=== PATIENT | female | born 1950 | race Caucasian/White ===

== ENCOUNTER → 2016-11-09 | Day surgery (SDC) | payer SELFPAY ==
[~2016-11-09] MED LIST: BSS OPTH.SOL* BTL ONE; Bacitracin OINTMENT* 0.5% 0.5 oz TUBE ONE; Buffered Lidocaine 1% SYR 3ML* 3 ML/SYR SYRINGE INTRADERM ONE; Buffered Lidocaine 1% SYR 3ML* 3 ML/SYR SYRINGE ONE; Dexamethasone IV* 4 MG/ML 1 ML (4 MG) ONE; DiMENhydriNATE IV* 50 MG/ML VIAL IV PUSH PRN; HYDROcodone/ACETAMIN 5-325 MG* 1 TAB PO PRN; HYDROmorphone INJ* 1 MG/ML CARPUJECT SYRINGE IV PRN; Lidocain 1% EPI 1:100,000 * 30 ML MDV ONE; Midazolam* 1 MG/ML 5 ML VIAL (5 MG) ONE; Ondansetron INJ* 2 MG/ML VIAL IV PRN; Ondansetron INJ* 2 MG/ML VIAL ONE; Petrolatum 5 GM* 5 GM PACKET ONE; Propofol* 10 MG/ML 20 ML BTL IV PUSH ONE; ceFAZolin 2 GM PREMIX (*) 2 GM/50 ML BAG IVPB ONE; fentaNYL* 50 MCG/ML 2 ML VIAL (100 MCG VIAL) IV PRN; fentaNYL* 50 MCG/ML 2 ML VIAL (100 MCG VIAL) ONE
[2016-11-09 11:51] VITALS: BP 120/60
== END | disposition home or self-care (01) ==
LOC: OREAST 07:50
PROVIDERS: ATTEND Plastic Surgery
DX: Z41.1 Encounter for cosmetic surgery (principal); Z87.891 Personal history of nicotine dependence; R73.01 Impaired fasting glucose; J98.4 Other disorders of lung; F41.1 Generalized anxiety disorder
CPT/HCPCS: A9270-GY; J0690; J1100; J2250; J2405; J2704; J3010

== ENCOUNTER 2020-02-18 09:52 | Inpatient (IN) | payer MEDICARE ==
--- NOTE | 2020-02-18 10:08 | ED ---
HPI Cardiac - HPI Summary HPI Summary: Patient is a 70 y/o F presenting to [facility] via EMS for SOB and v-tach. The patient was at Dr. Allison's office earlier this morning for a cardiac stress test. The patient developed SOB and went into v-tach during the test. EMS was called and patient brought into ED. Upon arrival the patient was asymptomatic. Patient denies fever, cough, chills and sick contacts. FMHx of cardiac disease. She is a former smoker and denies alcohol and substance usage. Home medications and allergies are reviewed. - History of Current Complaint Stated Complaint: SOB AFTER A STRESS TEST PER EMS Time Seen by Provider: 02/18/20 09:59 Hx Obtained From: Patient Onset/Duration: Resolved Timing: Intermittent Pain Scale Used: 0-10 Numeric Character: Dyspnea at Exertion Associated Signs and Symptoms: Positive: Shortness of Breath, Other: - vtach. Negative: Fever, Chills, Cough, Productive Cough, Nonproductive Cough - Allergy/Home Medications Allergies/Adverse Reactions: Allergies Allergy/AdvReac Type Severity Reaction Status Date / Time No Known Allergies Allergy Verified 02/18/20 13:59 Home Medications: Home Medications Acetaminophen [Acetaminophen Extra Stren] 2 tab PO TID PRN 11/06/15 [History Confirmed 02/18/20] Ibuprofen TAB* [Motrin TAB* 800 MG] 1 tab PO TID PRN 11/06/15 [History Confirmed 02/18/20] Calcium Carbonate-Vitamin D [Calcium 600 + D] 1 tab PO DAILY 11/02/16 [History Confirmed 02/18/20] Magnesium Oxide [Magnesium] 250 mg PO DAILY 02/18/20 [History Confirmed 02/18/20 ] Turmeric 400 mg PO DAILY 02/18/20 [History Confirmed 02/18/20] clonazePAM TAB(*) [KlonoPIN TAB(*)] 1 mg PO BID PRN 02/18/20 [History Confirmed 02/18/20] PMH/Surg Hx/FS Hx/Imm Hx Endocrine/Hematology History: Reports: Hx Diabetes - PRE-NO MEDS Denies: Hx Thyroid Disease Cardiovascular History: Denies: Hx Hypertension, Hx Pacemaker/ICD Respiratory History: Reports: Other Respiratory Problems/Disorders - BILATERAL LUNG NODULES/STABLE Denies: Hx Asthma, Hx Chronic Obstructive Pulmonary Disease (COPD) GI History: Denies: Hx Ulcer History: Denies: Hx Renal Disease Sensory History: Denies: Hx Contacts or Glasses - GLASSES, Hx Hearing Aid Opthamlomology History: Denies: Hx Contacts or Glasses - GLASSES Neurological History: Reports: Hx Migraine Psychiatric History: Reports: Hx Anxiety, Hx Panic Disorder - HIGH ANXIETY - Cancer History Cancer Type, Location and Year: HX OF MULTIPLE NODULES ON LUNGS: NO CLEAR DIAGNOSIS OR CAUSE. FORMER SMOKER Hx Chemotherapy: No Hx Radiation Therapy: No - Surgical History Surgery Procedure, Year, and Place: COSMETIC FACIAL SURGERY. TONSILS Hx Anesthesia Reactions: No Infectious Disease History: Denies: Hx Clostridium Difficile, Hx Hepatitis, Hx Human Immunodeficiency Virus (HIV), Hx of Known/Suspected MRSA, Hx Shingles, Hx Tuberculosis, Hx Known/ Suspected VRE, Hx Known/Suspected VRSA, History Other Infectious Disease - Family History Known Family History: Positive: Cardiac Disease, Hypertension - Social History Alcohol Use: None Substance Use Type: Reports: None Smoking Status (MU): Former Smoker Type: Cigarettes Amount Used/How Often: QUIT AT AGE 49 Length of Time of Smoking/Using Tobacco: 20 YRS Have You Smoked in the Last Year: No Review of Systems Negative: Fever, Chills Positive: Other - vtach, since resolved Positive: Shortness Of Breath - resolved . Negative: Cough All Other Systems Reviewed And Are Negative: Yes Physical Exam - Summary Physical Exam Summary: Constitutional: Well-developed, Well-nourished, Alert. (-) Distressed Skin: Warm, Dry HENT: Normocephalic; Atraumatic Eyes: Conjunctiva normal Neck: Musculoskeletal ROM normal neck. (-) JVD, (-) Stridor, (-) Tracheal deviation Cardio: Rhythm regular, rate normal, Heart sounds normal; Intact distal pulses; Radial pulses are 2+ and symmetric. (-) Murmur Pulmonary/Chest wall: Effort normal. (-) Respiratory distress, (-) Wheezes, (-) Rales Abd: Soft, (-) tenderness, (-) Distension, (-) Guarding, (-) Rebound Musculoskeletal: (-) Edema Lymph: (-) Cervical adenopathy Neuro: Alert, Oriented x3 Psych: Mood and affect Normal Triage Information Reviewed: Yes Vital Signs Reviewed: Yes Procedures - Sedation Patient Received Moderate/Deep Sedation with Procedure: No Diagnostics - Laboratory Result Diagrams: 02/18/20 10:36 02/18/20 10:36 Lab Statement: Any lab studies that have been ordered have been reviewed, and results considered in the medical decision making process. - EKG 1020 Cardiac Rate: NL - rate of 89 BPM EKG Rhythm: Sinus Rhythm Summary of EKG Findings: EKG showed NSR with rate of 89 BPM, ST flattening in lead III. No STEMI. ED physician has reviewed and interpreted this EKG. Disposition - Course Course Of Treatment: Patient is here after going into V. tach and become short of breath during her stress test. Patient was asymptomatic on arrival. Patient had blood or performed which was grossly unremarkable. Cardiology saw the patient and recommended catheterization. Patient was admitted by medicine - Diagnoses Provider Diagnoses: V-tach, Abnormal stress test, SOB (shortness of breath) - Physician Notifications Discussed Care Of Patient With: Jessi Bishop Time Discussed With Above Provider: 09:57 Instructed by Provider To: Other - Dr. Bishop in ED, states that the patient will be evaluated and considered for laboratory tester. 1040 - Patient's case was discussed with Dr. Jama, Dr. Jama accepts for admission - Critical Care Time Critical Care Statement: Critical care time is provided exclusive of any time spent performing procedures. Discharge ED - Sign-Out/Discharge Documenting (check all that apply): Patient Departure - admit - Discharge Plan Condition: Stable Disposition: ADMITTED TO [facility] - Billing Disposition and Condition Condition: STABLE Disposition: Admitted to [facility] - Attestation Statements Document Initiated by Scribe: Yes Documenting Scribe: ZIGGY BAXTER Provider For Whom Scribe is Documenting (Include Credential): KLEVER DUMONT MD Scribe Attestation: ZIGGY Bellamy, scribed for KLEVER DUMONT MD on 02/18/20 at 1609. Scribe Documentation Reviewed: Yes Provider Attestation: The documentation as recorded by the ZIGGY walker accurately reflects the service I personally performed and the decisions made by , KLEVER DUMONT MD Status of Scribe Document: Viewed
[2020-02-18] MEDS ORDERED: Metoprolol Tartrate TAB* 25 MG PO ONE (10:21)
[2020-02-18] MEDS ORDERED: Atorvastatin* 80 MG TAB PO ONE (10:22)
[2020-02-18] MEDS ORDERED: NS 0.9% 1000 ML** 1,000 ML IV ONE (10:25)
[2020-02-18 10:48] LABS: ABS Eosinophils 0.1 10^3/ul (0-0.6); ABS Lymphocytes 1.5 10^3/ul (1.0-4.8); ABS Monocytes 0.5 10^3/ul (0-0.8); ABS Neutrophils 3.2 10^3/ul (1.5-7.7); Hematocrit 41 % (35-47); Hemoglobin 13.8 g/dL (12.0-16.0); Mean Corpuscular HGB Conc 34 g/dL (31-36); Mean Corpuscular Hemoglobin 31 pg (27-31); Mean Corpuscular Volume 90 fL (80-97); Mean Platelet Volume 7.5 fL (7.4-10.4); Platelet Count 234 10^3/uL (150-450); Red Blood Count 4.51 10^6 /uL (3.70-4.87); Red Cell Distribution Width 14 % (10-15); White Blood Count 5.4 10^3/uL (3.5-10.8)
--- OUTSIDE RECORDS SUMMARY | 2020-02-18 10:59 | XMS REPORT | Continuity of Care Document ---
:1950 External Reference #:[id number] Author Name Nurse Visit cc (transmitted by agent of provider Sam Coleman) Address [address] [facility] [address] [place] [address] Problems Active Problems Provider Date Impaired fasting glycemia Jade Watts M.D. Onset: 03/15/2011 Multiple nodules of lung Jasiel Collins M.D. Onset: 07/13/2014 Localized, primary osteoarthritis Renee Baker M.D. Onset: 05/28/2019 Social History Type Date Description Comments Sex Unknown Tobacco Use Start: Unknown End: Former Cigarette Smoker started in her 20s, Unknown smoked 3-4/day, in her 30s went up to 10 daily, quit 2001 ETOH Use Denies alcohol use Recreational Drug Use Denies Drug Use Tobacco Use Start: Unknown End: Patient is a former Quit Age around age Unknown smoker 50 Smoking Status Reviewed: 01/19/20 Patient is a former Quit Age around age smoker 50 Exercise Type/Frequency Exercises sporadically Allergies, Adverse Reactions, Alerts Active Allergies Reaction Severity Comments Date Epinephrine INTOLERANCE, HEART RACE Moderate 12/20/2009 Adhesives RASH Moderate 12/20/2009 Medications Active Medications SIG Qnty Indications Ordering Date Provider Cheratussin ac 5 - 10 milliliters 118ml J98.4 Nimo Bob, 09/25/2019 every 6 hours as N.P. 100-10mg/5ML needed cough Solution Flovent HFA 1 puff twice daily 21.2gm J47.9 Brenda Tavares, 08/25/2019 44mcg/Act Aerosol Vortex Valved use as instructed 1units J47.9 Lyric 06/16/2019 Holding Chamber MARIETTA Mayers Device Clonazepam Take 1/2 To 1 60tabs Nimo Bob, 06/12/2019 1mg Tablet By Mouth N.P. Tablets Two Times Daily - Maximum Daily Dose Of 2 Tablets Per Day Flutter use as instructed 1units J47.9 Brenda Tavares, 05/15/2019 Device twice a day Knee Brace left knee right 1units S83.511D Russ F 02/14/2018 [facility] knee acl MD Loraine deficiency brace Freestyle Lite Test test twice daily 100units Nimo Paulino, 02/07/2018 or as needed N.P. Strips Magnesium 1 by mouth every 90tabs Nimo Varn, 08/23/2017 200mg day N.P. Tablets Proair HFA 2 puffs four times 1units J98.4 Nimo Varn, 09/20/2015 a day as needed N.P. 108(90Base) mcg/Act dyspnea Aerosol Zovirax 1 tablet 5 times a 75caps Nimo Paulino, 10/10/2011 200mg day for 5 days as N.P. Capsules needed Propranolol HCL 1 by mouth once 30tabs Nimo Bob, 06/06/2010 daily as needed N.P. 10mg Tablets for anxiety Calcium 600 + D 1 po bid 60tabs Unknown [id number] Tablets History Medications Tamiflu 1 by mouth daily 10caps Nimo Bob, 2020 - 75mg Capsules for 10 days N.P. 01/18/2020 Tamiflu 1 by mouth daily 10caps Nimo Bob, 12/08/2019 - 75mg Capsules for 10 days N.P. 12/18/2019 Doxycycline Hyclate one tablet twice 14caps Brenda Tavares MD 2018 - 100mg daily for 7 08/28/2019 Capsules days. Medications Administered in Office Medication SIG Qnty Indications Ordering Provider Date PPD Injection Nurse Visit A 08/03/2017 Immunizations CPT Code Status Date Vaccine Reaction Lot # [id number] Given 09/25/2019 Tetanus And Diptheria (Td) No immediate reaction [id number] For Adult Use Preservative Free [id number] Given 07/17/2018 Pneumonia Vaccine No immediate [id number] reaction.. 09778 Given 07/17/2018 Influenza Virus Vaccine, No immediate [id number] Quadrivalent, Split, reaction... Preservative Free [id number] Given 08/01/2016 Flu Vaccine NOS 42379 Given 08/11/2015 Flu Vaccine Split Virus Preservative Free For Indiv 3Yr Older 38107 Given 06/02/2015 Pneumococcal Conjugate [id number] Vaccine 13 Valent For Intramuscular Use 73924 Given 08/12/2014 Flu Vaccine Split Virus Preservative Free For Indiv 3Yr Older 84291 Given 08/12/2014 Flu Vaccine Split Virus [id number] Preservative Free For Indiv 3Yr Older 52271 Given 08/05/2013 Flu Vaccine Split Virus [id number] Preservative Free For Indiv 3Yr Older 25943 Given 12/05/2012 Zoster (Zostavax) [id number] 11836 Given 04/09/2012 Pneumonia Vaccine [id number] 50562 Given 12/16/2008 Tdap - Tetanus/Diptheria/Acellular Pertussis 40956 Given Unknown Pneumonia Vaccine Vital Signs Date Vital Result Comment 01/19/2020 9:26am Height 64.5 inches 5'4.50" Weight 134.50 lb without shoes Heart Rate 98 /min Radial,regular BP Systolic Sitting 156 mmHg LA, reg cuff BP Diastolic Sitting 80 mmHg LA, reg cuff BP Systolic Standing 152 mmHg Ra sitting,reg cuff BP Diastolic Standing 86 mmHg Ra sitting,reg cuff BP Systolic Lying Down 148 mmHg Ra standing,reg cuff BP Diastolic Lying Down 78 mmHg Ra standing,reg cuff BP Systolic Recheck 137 mmHg la repeat sitting BP Diastolic Recheck 82 mmHg la repeat sitting BMI (Body Mass Index) 22.7 kg/m2 01/08/2020 10:17am Height 64.5 inches 5'4.50" Weight 134.00 lb Heart Rate 95 /min BP Systolic Sitting 130 mmHg BP Diastolic Sitting 90 mmHg O2 % BldC Oximetry 98 % BMI (Body Mass Index) 22.6 kg/m2 Results Test Acquired Date Facility Test Result H/L Range Note CBC Auto 01/05/2020 [facility] White Blood 5.9 10^3/uL Normal 3.5-10.[address] [place] [address] [phone] Red Blood Count 4.41 10^6/uL Normal 3.70-4.87 Hemoglobin 13.5 g/dL Normal 12.0-16.0 Hematocrit 40 % Normal 35-47 Mean Corpuscular Volume 91 fL Normal 80-97 Mean Corpuscular Hemoglobin 31 pg Normal 27-31 Mean Corpuscular HGB Conc 34 g/dL Normal 31-36 Red Cell Distribution Width 14 % Normal 10-15 Platelet Count 273 10^3/uL Normal 150-450 Mean Platelet Volume 8.1 fL Normal 7.4-10.4 Abs Neutrophils 2.9 10^3/uL Normal 1.5-7.7 Abs Lymphocytes 2.1 10^3/uL Normal 1.0-4.8 Abs Monocytes 0.7 10^3/uL Normal 0-0.8 Abs Eosinophils 0.1 10^3/uL Normal 0-0.6 Abs Basophils 0.0 10^3/uL Normal 0-0.2 Abs Nucleated RBC 0.0 10^3/uL Granulocyte % 50.0 % Lymphocyte % 35.2 % Monocyte % 12.3 % Eosinophil % 1.8 % Basophil % 0.7 % Nucleated Red Blood Cells % 0.1 Laboratory 01/05/2020 [facility] TSH (Thyroid 3.18 Normal 0.34 -5.[address] Stim Horm) mcIU/[place] [address] [phone] Magnesium 2.2 mg/dL Normal 1.9-2.7 Basic Metabolic 01/05/2020 [facility] Sodium 140 mmol/L Normal 135-[address] [place] [address] [phone] Potassium 4.3 mmol/L Normal 3.5-5.0 Chloride 105 mmol/L Normal 101-111 Co2 Carbon Dioxide 26 mmol/L Normal 22-32 Anion Gap 9 mmol/L Normal 2-11 Glucose 98 mg/dL Normal 70-100 Blood Urea Nitrogen 17 mg/dL Normal 6-24 Creatinine 0.81 mg/dL Normal 0.51-0.95 BUN/Creatinine Ratio 21.0 High 8-20 Calcium 10.1 mg/dL Normal 8.6-10.3 Egfr Non- 70.1 >60 Egfr 84.8 >60 1 Laboratory test 09/23/2019 [facility] Hemoglobin A1c 6.2 % High 4.0-5.[address] (Glyco HGB) [place] [address] [phone] Comp Metabolic 09/23/2019 [facility] Sodium 140 Normal 135- [address] mmol/[place] [address] [phone] Potassium 4.9 mmol/L Normal 3.5-5.0 Chloride 104 mmol/L Normal 101-111 Co2 Carbon Dioxide 29 mmol/L Normal 22-32 Anion Gap 7 mmol/L Normal 2-11 Glucose 100 mg/dL Normal 70-100 Blood Urea Nitrogen 19 mg/dL Normal 6-24 Creatinine 0.83 mg/dL Normal 0.51-0.95 BUN/Creatinine Ratio 22.9 High 8-20 Calcium 10.1 mg/dL Normal 8.6-10.3 Total Protein 7.1 g/dL Normal 6.4-8.9 Albumin 4.5 g/dL Normal 3.2-5.2 Globulin 2.6 g/dL Normal 2-4 Albumin/Globulin Ratio 1.7 Normal 1-3 Total Bilirubin 0.40 mg/dL Normal 0.2-1.0 Alkaline Phosphatase 89 U/L Normal 34-104 Alt 21 U/L Normal 7-52 Ast 16 U/L Normal 13-39 Egfr Non- 68.2 >60 Egfr 82.5 >60 3 Lipid Profile 09/23/2019 [facility] Triglycerides 161 mg/dL 4 (Trig/Chol/HDL) [address] [place] [address] [phone] Cholesterol 205 mg/dL 5 HDL Cholesterol 52.5 mg/dL 6 LDL Cholesterol 120 mg/dL 7 Laboratory test 08/25/2019 [facility] Cyclic Citrullinated < 15.6 U [address] [place] [address] [phone] C Reactive Protein 1.07 mg/L Normal <8.01 1 Because ethnic data is not always readily available, this report includes an eGFR for both -Americans and non- Americans. The National Kidney Disease Education Program (NKDEP) does not endorse the use of the MDRD equation for patients that are not between the ages of 18 and 70, are , have extremes of body size, muscle mass, or nutritional status, or are non- or non-. According to the National Kidney Foundation, irrespective of diagnosis, the stage of the disease is based on the level of kidney function: Stage Description GFR(mL/min/1.73 m(2)) 1 Kidney damage with normal or decreased GFR 90 2 Kidney damage with mild decrease in GFR 60-89 3 Moderate decrease in GFR 30-59 4 Severe decrease in GFR 15-29 5 Kidney failure <15 (or dialysis) 2 Therapeutic target for the treatment of diabetes mellitus patients is <7% HBA1C, and in selective patients <6.0%. Please refer to [place] [employer] diabetic care guidelines for further information. 3 Because ethnic data is not always readily available, this report includes an eGFR for both -Americans and non- Americans. The National Kidney Disease Education Program (NKDEP) does not endorse the use of the MDRD equation for patients that are not between the ages of 18 and 70, are , have extremes of body size, muscle mass, or nutritional status, or are non- or non-. According to the National Kidney Foundation, irrespective of diagnosis, the stage of the disease is based on the level of kidney function: Stage Description GFR(mL/min/1.73 m(2)) 1 Kidney damage with normal or decreased GFR 90 2 Kidney damage with mild decrease in GFR 60-89 3 Moderate decrease in GFR 30-59 4 Severe decrease in GFR 15-29 5 Kidney failure <15 (or dialysis) 4 Desirable: <150 Borderline High: 150-199 High: 200-499 Very High: >500 5 Desirable: <200 Borderline High: 200-239 High: >239 6 Low: <40 Desirable: 40-60 High: >60 7 Desirable: <100 Near Optimal: 100-129 Borderline High: 130-159 High: 160-189 Very High: >189 8 REFERENCE VALUE <20.0 (Negative) Test Performed by: [facility] [address] [place] [address] Travel Accommodation Inspector: Bernardo Sorto M.D. Ph.D.; CLIA# [id number] Procedures Date Code Description Status 01/19/2020 12584 EKG Tracing & Interpretation Completed 01/05/2020 97623 EKG Tracing & Interpretation Completed 12/05/2019 [id number] Diabetic Retinal Eye Exam Completed 08/30/2018 [id number] Mammogram Completed 02/15/2018 [id number] Diabetic Retinal Eye Exam Completed 07/16/2017 [id number] Mammogram Completed 07/13/2016 [id number] Mammogram Completed 06/22/2015 [id number] Mammogram Completed 05/25/2014 [id number] Mammogram Completed 05/25/2014 [id number] Bone Mineral Density Test Completed 06/11/2013 [id number] Colonoscopy Completed 11/15/2011 [id number] Mammogram Completed 11/15/2011 [id number] Bone Mineral Density Test Completed 02/14/2010 [id number] Mammogram Completed 12/30/2008 [id number] Mammogram Completed 12/30/2008 [id number] Bone Mineral Density Test Completed 06/22/2005 [id number] Diabetic Foot Exam Completed 04/02/2003 [id number] Colonoscopy Completed Medical Devices Description No Information Available Encounters Type Date Location Provider Dx Diagnosis Office Visit 01/19/2020 [facility] Florentino Lazaro.9 Bronchiectasis , 9:40a Brianna Allison uncomplicated I49.3 Ventricular premature depolarization I34.0 Nonrheumatic mitral (valve) insufficiency R94.31 Abnormal electrocardiogram [ECG] [EKG] R03.0 Elevated blood-pressure reading, w/o diagnosis of htn R00.2 Palpitations Office Visit 01/08/2020 [facility] J47.9 Bronchiectasis, 10:30a [facility] [place] uncomplicated [facility] Office Visit 01/05/2020 [facility] Internal Nimo I49.3 Ventricular 11:20a Medicine - Glenis Varn, N.P. premature depolarization Office Visit 09/25/2019 [facility] Internal Nimo Z00.00 Encntr for general 9:00a Medicine - [facility] Varn, N.P. adult medical exam w/o abnormal findings Z12.31 Encntr screen mammogram for malignant neoplasm of breast E78.00 Pure hypercholesterolemia, unspecified R73.01 Impaired fasting glucose F41.1 Generalized anxiety disorder R05 Cough Z23 Encounter for immunization Office Visit 08/25/2019 [facility] J47.9 Bronchiectasis, 8:30a [facility] [place] uncomplicated [facility] Assessments Date Code Description Provider 01/19/2020 [place].9 Bronchiectasis, uncomplicated Florentino Allison M.D. 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 01/19/2020 I34.0 Nonrheumatic mitral (valve) insufficiency Florentino Allison M.D. 01/19/2020 R94.31 Abnormal electrocardiogram [ECG] [EKG] Florentino Allison M.D. 01/19/2020 R03.0 Elevated blood-pressure reading, without Florentino Allison M.D. diagnosis of hypertension 01/19/2020 R00.2 Palpitations Florentino Allison M.D. 01/08/2020 J47.9 Bronchiectasis, uncomplicated Brenda Tavares MD 01/05/2020 I49.3 Ventricular premature depolarization Nimo Bob, N.P. 01/05/2020 I49.3 Ventricular premature depolarization Shaunna Brooks MD 09/25/2019 Z00.00 Encounter for general adult medical Kathy Barron.Naz examination without abnormal findings 09/25/2019 Z12.31 Encounter for screening mammogram for Nimo Bob N.PDavid malignant neoplasm of breast 09/25/2019 E78.00 Pure hypercholesterolemia, unspecified Nimo Bob, N.P. 09/25/2019 R73.01 Impaired fasting glucose Nimo Bob, N.P. 09/25/2019 F41.1 Generalized anxiety disorder Nimo Bob N.P. 09/25/2019 R05 Cough Nimo Bob N.P. 09/25/2019 Z23 Encounter for immunization Nimo Bob N.P. 08/25/2019 J47.9 Bronchiectasis, uncomplicated Brenda Tavares MD Plan of Treatment Future Appointment(s):03/18/2020 11:00 am - Chantell Navarro N.P. at [facility]02/13/2020 8:30 am - Nurse Visit cc at [facility]02/16/2020 10 :00 am - [facility] Schedule at [facility]03/10/2020 10:00 am - [facility] Schedule at [facility]03/10/2020 10:30 am - Florentino Allison M.D. at [facility]01/13/2021 10:30 am - Lyric Mayers NP at [facility]10/13/2020 9:20 am - Nimo Bob N.P. at [facility] Internal Medicine - [facility]01/19/2020 - Florentino Allison M.D.J47.9 Bronchiectasis, zdflxumgnitcaZ71.3 Ventricular premature depolarizationRecommendations:reduce caffeine. increase regular moderate exercise to 30 min 4-5 times/weekI34.0 Nonrheumatic mitral (valve) insufficiencyNew Orders:Echocardiogram, Scheduled: 02/16/20R94.31 Abnormal electrocardiogram [ECG] [EKG]New Orders:Stress Test, Exercise Echocardiogram, Scheduled: 03/10/20Follow up:ov Chantell 2 m ov JFM 8 mR03.0 Elevated blood- pressure reading, without diagnosis of hypertensionRecommendations:bring home unit to next visit.R00.2 Palpitations Functional Status Description No Information Available Mental Status Description No Information Available Referrals Refer to Reason for Referral Status Appt Date Florentino Allison MD Patient with frequent PVCs referred for Sent 01/19/2020 evaluation and treatment. Thank you for seeing this very pleasant patient. [address] [place] [address] [phone]
--- OUTSIDE RECORDS SUMMARY | 2020-02-18 10:59 | XMS REPORT | Continuity of Care Document ---
:1950 External Reference #:[id number] Author Name Nurse Visit cc (transmitted by agent of provider Anat Trinidad) Address [address] [facility] [address] [place] [address] Problems Active Problems Provider Date Impaired fasting [...] knee right 1units S83.511D Russ F 02/14/2018 [facility] knee acl MD Loraine deficiency brace Freestyle Lite Test test twice daily 100units Nimo Paulino, 02/07/2018 or as needed N.P. Strips Magnesium 1 by mouth every 90tabs Nimo Varn, 08/23/2017 200mg day N.P. Tablets Proair HFA 2 puffs four times 1units J98.4 Nimo Varjoycelyn, 09/20/2015 a day as needed N.P. 108(90Base) mcg/Act dyspnea Aerosol Zovirax 1 tablet 5 times a 75caps Nimo Bob, 10/10/2011 200mg day for 5 days as N.P. Capsules needed Propranolol HCL 1 by mouth once 30tabs Nimo Bob, 06/06/2010 daily as needed N.P. 10mg Tablets for anxiety Calcium 600 + D 1 po bid 60tabs Unknown [id number] Tablets History Medications Tamiflu 1 by mouth [...] Code Status Date Vaccine Reaction Lot # [id number] Given 09/25/2019 Tetanus And Diptheria (Td) No immediate reaction [id number] For Adult Use Preservative Free 88123 Given 07/17/2018 Pneumonia Vaccine No immediate [id number] reaction.. 56492 Given 07/17/2018 Influenza Virus Vaccine, No immediate [id number] Quadrivalent, Split, reaction... Preservative Free Q2039 Given 08/01/2016 Flu Vaccine NOS 64023 Given 08/11/2015 Flu Vaccine Split Virus Preservative Free For Indiv 3Yr Older 71924 Given 06/02/2015 Pneumococcal Conjugate [id number] Vaccine 13 Valent For Intramuscular Use 59038 Given 08/12/2014 Flu Vaccine Split Virus Preservative Free For Indiv 3Yr Older 58618 Given 08/12/2014 Flu Vaccine Split Virus [id number] Preservative Free For Indiv 3Yr Older 50261 Given 08/05/2013 Flu Vaccine Split Virus [id number] Preservative Free For Indiv 3Yr Older 36590 Given 12/05/2012 Zoster (Zostavax) [id number] 07564 Given 04/09/2012 Pneumonia Vaccine [id number] 94534 Given 12/16/2008 Tdap - Tetanus/Diptheria/Acellular Pertussis 68024 Given Unknown Pneumonia Vaccine Vital Signs Date [...] Result H/L Range Note CBC Auto 01/05/2020 [facility] White Blood 5.9 10^3/uL Normal 3.5-10.[address] [place] [address] [phone] Red Blood Count 4.41 10^6/uL Normal 3.70-4.87 [...] Red Blood Cells % 0.1 Laboratory 01/05/2020 [facility] TSH (Thyroid 3.18 Normal 0.34 -5.[address] Stim Horm) mcIU/[place] [address] [phone] Magnesium 2.2 mg/dL Normal 1.9-2.7 Basic Metabolic 01/05/2020 [facility] Sodium 140 mmol/L Normal 135-[address] [place] [address] [phone] Potassium 4.3 mmol/L Normal 3.5-5.0 Chloride 105 mmol/L Normal 101-111 Co2 Carbon Dioxide 26 mmol/L Normal 22-32 Anion Gap 9 mmol/L Normal 2-11 Glucose 98 mg/dL Normal 70-100 Blood Urea Nitrogen 17 mg/dL Normal 6-24 Creatinine 0.81 mg/dL Normal 0.51-0.95 BUN/Creatinine Ratio 21.0 High 8-20 Calcium 10.1 mg/dL Normal 8.6-10.3 Egfr Non- 70.1 >60 Egfr 84.8 >60 1 Laboratory test 09/23/2019 [facility] Hemoglobin A1c 6.2 % High 4.0-5.[address] (Glyco HGB) [place] [address] [phone] Comp Metabolic 09/23/2019 [facility] Sodium 140 Normal 135- [address] mmol/[place] [address] [phone] Potassium 4.9 mmol/L Normal 3.5-5.0 Chloride 104 [...] Egfr 82.5 >60 3 Lipid Profile 09/23/2019 [facility] Triglycerides 161 mg/dL 4 (Trig/Chol/HDL) [address] [place] [address] [phone] Cholesterol 205 mg/dL 5 HDL Cholesterol 52.5 mg/dL 6 LDL Cholesterol 120 mg/dL 7 Laboratory test 08/25/2019 [facility] Cyclic Citrullinated < 15.6 U [address] [place] [address] [phone] C Reactive Protein 1.07 mg/L Normal <8.01 [...] in selective patients <6.0%. Please refer to [place] Diabetes [employer] diabetic care guidelines for further [...] REFERENCE VALUE <20.0 (Negative) Test Performed by: [facility] [address] [place] [address] Bilingual Account Manager: Bernardo Sorto M.D. Ph.D.; CLIA# [id number] Procedures Date Code Description Status 02/12/2020 61529 Holter Monitor Review (24 hr)dr review & interp only Completed 02/12/2020 40930 ECG Monitor/Recording W/Visual Superimposition Completed Scanning 01/19/2020 23660 EKG Tracing & Interpretation Completed 01/05/2020 19053 EKG Tracing & Interpretation Completed 12/05/2019 [id number] Diabetic Retinal Eye Exam Completed 08/30/2018 [id number] Mammogram Completed 02/15/2018 [id number] Diabetic Retinal Eye Exam Completed 07/16/2017 [id number] Mammogram Completed 07/13/2016 [id number] Mammogram Completed 06/22/2015 [id number] Mammogram Completed 05/25/2014 [id number] Mammogram Completed 05/25/2014 [id number] Bone Mineral Density Test Completed 06/11/2013 97957774 Colonoscopy Completed 11/15/2011 [id number] Mammogram Completed 11/15/2011 [id number] Bone Mineral Density Test Completed 02/14/2010 [id number] Mammogram Completed 12/30/2008 04546580 Mammogram Completed 12/30/2008 181004022 Bone Mineral Density Test Completed 06/22/2005 142556567 Diabetic Foot Exam Completed 04/02/2003 [id number] Colonoscopy Completed Medical Devices Description No Information Available Encounters Type Date Location Provider Dx Diagnosis Office Visit 01/19/2020 [facility] Florentino Spangler47.9 Bronchiectasis , 9:40a Brianna Allison uncomplicated I49.3 Ventricular premature depolarization I34.0 Nonrheumatic mitral (valve) insufficiency R94.31 Abnormal electrocardiogram [ECG] [EKG] R03.0 Elevated blood-pressure reading, w/o diagnosis of htn R00.2 Palpitations Office Visit 01/08/2020 [facility] J47.9 Bronchiectasis, 10:30a [facility] Anusha uncomplicated [facility] Office Visit 01/05/2020 [facility] Internal Nimo I49.3 Ventricular 11:20a Medicine - Glenis Bob, N.P. premature depolarization Office Visit 09/25/2019 [facility] Internal Nimo Z00.00 Encntr for general 9:00a Medicine - Glenis Bob, N.P. 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 01/19/2020 I49.3 [...] 09/25/2019 Z00.00 Encounter for general adult medical Nimo Bob N.Naz examination without abnormal findings 09/25/2019 Z12.31 Encounter for screening mammogram for Nimo Bob N.PDvaid malignant neoplasm of breast 09/25/2019 E78.00 Pure hypercholesterolemia, unspecified Nimo Bob, N.P. 09/25/2019 R73.01 Impaired fasting glucose Nimo Bob, N.P. 09/25/2019 F41.1 Generalized anxiety disorder Nimo Bob, N.P. 09/25/2019 R05 Cough Nimo Bob, N.P. 09/25/2019 Z23 Encounter for immunization Nimo Bob, N.P. 08/25/2019 J47.9 Bronchiectasis, uncomplicated Brenda Tavares MD Plan of Treatment Future Appointment(s):03/18/2020 11:00 am - Jessy [facility]iresP. at [facility]02/16/2020 10:00 am - [place] [facility] Schedule at [facility]2019 10:00 am - [place] [facility] Schedule at [facility]03/10/2020 10:30 am - Florentino Allison M.D. at [facility]01/13/2021 10:30 am - Lyric Mayers NP at [facility]10/13/2020 9:20 am - Nimo Bob N.P. at [facility] Internal Medicine - [facility]01/19/2020 - Florentino Allison M.D.J47.9 Bronchiectasis, jteewnwdndfmcR08.3 Ventricular premature depolarizationRecommendations:reduce caffeine. 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 Thank you for seeing this very pleasant patient. [address] [facility] 4TH [place] [address] [phone]
--- OUTSIDE RECORDS SUMMARY | 2020-02-18 10:59 | XMS REPORT | Continuity of Care Document ---
:1950 External Reference #:[id number] Author Name [place] [facility] (transmitted by agent of provider Tarik Conroy) Address [address] [facility] [address] [place] [address] Problems Active Problems Provider Date Impaired fasting [...] 1units S83.511D Russ F 02/14/2018 [facility] [place] acl MD Loraine deficiency brace Freestyle [...] Propranolol HCL 1 by mouth once 30tabs Nmio Bob, 06/06/2010 daily as needed N.P. 10mg Tablets for anxiety Calcium 600 + D 1 po bid 60tabs Unknown [id number] Tablets History Medications Tamiflu 1 by mouth [...] Code Status Date Vaccine Reaction Lot # 38874 Given 09/25/2019 Tetanus And Diptheria (Td) No immediate reaction [id number] For Adult Use Preservative Free 68766 Given 07/17/2018 Pneumonia Vaccine No immediate [id number] reaction.. 55058 Given 07/17/2018 Influenza Virus Vaccine, No immediate [id number] Quadrivalent, Split, reaction... Preservative Free Q2039 Given 08/01/2016 Flu Vaccine NOS 78353 Given 08/11/2015 Flu Vaccine Split Virus Preservative Free For Indiv 3Yr Older 87034 Given 06/02/2015 Pneumococcal Conjugate [id number] Vaccine 13 Valent For Intramuscular Use 19731 Given 08/12/2014 Flu Vaccine Split Virus Preservative Free For Indiv 3Yr Older 15039 Given 08/12/2014 Flu Vaccine Split Virus 192859 Preservative Free For Indiv 3Yr Older 81659 Given 08/05/2013 Flu Vaccine Split Virus [id number] Preservative Free For Indiv 3Yr Older 99203 Given 12/05/2012 Zoster (Zostavax) [id number] 53708 Given 04/09/2012 Pneumonia Vaccine 1947AA 76377 Given 12/16/2008 Tdap - Tetanus/Diptheria/Acellular Pertussis 47809 Given Unknown Pneumonia Vaccine Vital Signs Date [...] Result H/L Range Note CBC Auto 01/05/2020 [facility] White Blood 5.9 10^3/uL Normal 3.5-10.[address] [place] [address] [phone] Red Blood Count 4.41 10^6/uL Normal 3.70-4.87 [...] Red Blood Cells % 0.1 Laboratory 01/05/2020 [facility] TSH (Thyroid 3.18 Normal 0.34 -5.[address] Stim Horm) mcIU/[place] [address] [phone] Magnesium 2.2 mg/dL Normal 1.9-2.7 Basic Metabolic 01/05/2020 [facility] Sodium 140 mmol/L Normal 135-[address] [place] [address] [phone] Potassium 4.3 mmol/L Normal 3.5-5.0 Chloride 105 mmol/L Normal 101-111 Co2 Carbon Dioxide 26 mmol/L Normal 22-32 Anion Gap 9 mmol/L Normal 2-11 Glucose 98 mg/dL Normal 70-100 Blood Urea Nitrogen 17 mg/dL Normal 6-24 Creatinine 0.81 mg/dL Normal 0.51-0.95 BUN/Creatinine Ratio 21.0 High 8-20 Calcium 10.1 mg/dL Normal 8.6-10.3 Egfr Non- 70.1 >60 Egfr 84.8 >60 1 Laboratory test 09/23/2019 [facility] Hemoglobin A1c 6.2 % High 4.0-5.[address] (Glyco HGB) [place] [address] [phone] Comp Metabolic 09/23/2019 [facility] Sodium 140 Normal 135- [address] mmol/[place] [address] [phone] Potassium 4.9 mmol/L Normal 3.5-5.0 Chloride 104 [...] Egfr 82.5 >60 3 Lipid Profile 09/23/2019 [facility] Triglycerides 161 mg/dL 4 (Trig/Chol/HDL) [address] [place] [address] [phone] Cholesterol 205 mg/dL 5 HDL Cholesterol 52.5 mg/dL 6 LDL Cholesterol 120 mg/dL 7 Laboratory test 08/25/2019 [facility] Cyclic Citrullinated < 15.6 U [address] [place] [address] [phone] C Reactive Protein 1.07 mg/L Normal <8.01 [...] in selective patients <6.0%. Please refer to [place] Diabetes Association diabetic care guidelines for further [...] REFERENCE VALUE <20.0 (Negative) Test Performed by: [facility] [address] [place] [address] Communications Executive: Bernardo Sorto M.D. Ph.D.; CLIA# [id number] Procedures Date Code Description Status 02/16/2020 59495 ECHO Transthoracic, Real-Time 2D With Doppler And Completed Color Flow 02/12/2020 02783 Holter Monitor Review (24 hr)dr teague & genia only Completed 02/12/2020 04561 ECG Monitor/Recording W/Visual Superimposition Completed Scanning 01/19/2020 69670 EKG Tracing & Interpretation Completed 01/05/2020 07251 EKG Tracing & Interpretation Completed 12/05/2019 176103158 Diabetic Retinal Eye Exam Completed 08/30/2018 42011835 Mammogram Completed 02/15/2018 601850054 Diabetic Retinal Eye Exam Completed 07/16/2017 [id number] Mammogram Completed 07/13/2016 13820426 Mammogram Completed 06/22/2015 18373278 Mammogram Completed 05/25/2014 593067337 Bone Mineral Density Test Completed 05/25/2014 [id number] Mammogram Completed 06/11/2013 [id number] Colonoscopy Completed 11/15/2011 17279100 Mammogram Completed 11/15/2011 212068068 Bone Mineral Density Test Completed 02/14/2010 [id number] Mammogram Completed 12/30/2008 80786447 Mammogram Completed 12/30/2008 609079695 Bone Mineral Density Test Completed 06/22/2005 039857394 Diabetic Foot Exam Completed 04/02/2003 [id number] Colonoscopy Completed Medical Devices Description No Information Available Encounters Type Date Location Provider Dx Diagnosis Office Visit 01/19/2020 [facility] Florentino Spangler47.9 Bronchiectasis , 9:40a Brianna Allison uncomplicated I49.3 Ventricular premature depolarization I34.0 Nonrheumatic mitral (valve) insufficiency R94.31 Abnormal electrocardiogram [ECG] [EKG] R03.0 Elevated blood-pressure reading, w/o diagnosis of htn R00.2 Palpitations Office Visit 01/08/2020 [facility] J47.9 Bronchiectasis, 10:30a [facility] Anusha uncomplicated [facility] Office Visit 01/05/2020 [facility] Internal Nimo I49.3 Ventricular 11:20a Medicine - Glenis Bob, N.P. premature depolarization Office Visit 09/25/2019 [facility] Internal Nimo Z00.00 Encntr for general 9:00a Medicine - Glenis Bob, N.P. 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 09/25/2019 R73.01 Impaired fasting glucose Nimo Bob, N.P. 09/25/2019 F41.1 Generalized anxiety disorder Nimo Bob, N.P. 09/25/2019 R05 Cough Nimo Bob, N.P. 09/25/2019 Z23 Encounter for immunization Nimo Bob N.P. 08/25/2019 J47.9 Bronchiectasis, uncomplicated Brenda Tavares MD Plan of Treatment Future Appointment(s):03/18/2020 11:00 am - Chantell Navarro N.P. at [place] [facility]/11/2021 10:30 am - Lyric Mayers NP at [facility]/13/2020 9:20 am - Nimo Bob N.P. at [facility] Internal Medicine - [facility]01/19/2020 - Florentino Allison M.D.J47.9 Bronchiectasis, xmitmarxwbrxyJ07.3 Ventricular premature depolarizationRecommendations:reduce caffeine. 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 Thank you for seeing this very pleasant patient. [address] [facility] 4TH [place] [address] [phone]
--- OUTSIDE RECORDS SUMMARY | 2020-02-18 11:00 | XMS REPORT | Continuity of Care Document ---
:1950 External Reference #:[id number] Author Name Brenda Tavares MD (transmitted by agent of provider Doris Arango) Address [address], [address] [place] [address] Problems Active Problems Provider Date Impaired fasting glycaemia Jade Watts M.D. Onset: 03/15/2011 Multiple nodules [...] age Unknown smoker 50 Smoking Status Reviewed: 01/08/20 Patient is a former Quit Age around age smoker 50 Exercise Type/Frequency Exercises sporadically Allergies, Adverse Reactions, Alerts Active Allergies Reaction Severity Comments Date Epinephrine INTOLERANCE, HEART RACE Moderate 12/20/2009 Adhesives RASH Moderate 12/20/2009 Medications Active Medications SIG Qnty Indications Ordering Date Provider Varun ac 5 - 10 milliliters 118ml J98.4 Nimo Bob, 09/25/2019 every 6 hours as N.P. 100-10mg/5ML needed cough Solution Flovent HFA 1 puff twice daily 21.2gm J47.9 Brenda Tavares, 08/25/2019 44mcg/Act Aerosol Ambien 1 tab before 1tabs Lyric 06/27/2019 5mg Tablets bedtime MARIETTA Mayers Vortex Valved use as instructed 1units J47.9 Lyric 06/16/2019 Holding Chamber MARIETTA Mayers Device Clonazepam take 1/2 to 1 60tabs Nimo Farahjoycelyn, 06/12/2019 1mg tablet by mouth N.P. Tablets two times daily - maximum daily dose of 2 per day Flutter use as instructed 1units J47.9 Brenda Tavares, 05/15/2019 Device twice a day Knee Brace left knee right 1units S83.511D Russ F 02/14/2018 [facility] knee acl MD Loraine deficiency brace Freestyle Lite Test test twice daily 100units Nimo Varjoycelyn, 02/07/2018 or as needed N.P. Strips Magnesium [...] HCL 1 by mouth once 30tabs Nimo Paulino, 06/06/2010 daily as needed N.P. 10mg Tablets for anxiety Calcium 600 + D 1 po bid 60tabs Unknown [id number] Tablets History Medications Tamiflu 1 by mouth daily 10caps Nimo Paulino, 12/08/2019 - 75mg Capsules for 10 days N.P. 12/18/2019 Doxycycline Hyclate one tablet twice 14caps Brenda Tavares MD 2018 - 100mg daily for 7 08/28/2019 Capsules days. Medications Administered in Office Medication SIG Qnty Indications Ordering Provider Date PPD Injection Nurse Visit A 08/03/2017 Immunizations CPT Code Status Date Vaccine Reaction Lot # [id number] Given 09/25/2019 Tetanus And Diptheria (Td) No immediate reaction [id number] For Adult Use Preservative Free [id number] Given 07/17/2018 Pneumonia Vaccine No immediate [id number] reaction.. [id number] Given 07/17/2018 Influenza Virus Vaccine, No immediate [id number] Quadrivalent, Split, reaction... Preservative Free [id number] Given 08/01/2016 Flu Vaccine NOS 56913 Given 08/11/2015 Flu Vaccine Split Virus Preservative Free For Indiv 3Yr Older 62500 Given 06/02/2015 Pneumococcal Conjugate [id number] Vaccine 13 Valent For Intramuscular Use 92570 Given 08/12/2014 Flu Vaccine Split Virus Preservative Free For Indiv 3Yr Older 37791 Given 08/12/2014 Flu Vaccine Split Virus [id number] Preservative Free For Indiv 3Yr Older 72784 Given 08/05/2013 Flu Vaccine Split Virus [id number] Preservative Free For Indiv 3Yr Older 70463 Given 12/05/2012 Zoster (Zostavax) [id number] 96927 Given 04/09/2012 Pneumonia Vaccine [id number] 32462 Given 12/16/2008 Tdap - Tetanus/Diptheria/Acellular Pertussis 86435 Given Unknown Pneumonia Vaccine Vital Signs Date Vital Result Comment 01/08/2020 10:17am Height 64.5 inches 5'4.50" Weight 134.00 lb Heart Rate 95 /min BP Systolic Sitting 130 mmHg BP Diastolic Sitting 90 mmHg O2 % BldC Oximetry 98 % BMI (Body Mass Index) 22.6 kg/m2 01/05/2020 11:31am Height 64.5 inches 5'4.50" Weight 132.38 lb Heart Rate 96 /min BP Systolic Sitting 135 mmHg BP Diastolic Sitting 72 mmHg Body Temperature 97.8 F O2 % BldC Oximetry 97 % BMI (Body Mass Index) 22.4 kg/m2 Results Test Acquired Date Facility Test Result H/L Range Note Basic Metabolic 01/05/2020 [facility] Sodium 140 mmol/L Normal 135-145 Panel [address] [place] [address] [phone] Potassium 4.3 mmol/L Normal 3.5-5.0 Chloride 105 mmol/L Normal 101-111 Co2 Carbon Dioxide 26 mmol/L Normal 22-32 Anion Gap 9 mmol/L Normal 2-11 Glucose 98 mg/dL Normal 70-100 Blood Urea Nitrogen 17 mg/dL Normal 6-24 Creatinine 0.81 mg/dL Normal 0.51-0.95 BUN/Creatinine Ratio 21.0 High 8-20 Calcium 10.1 mg/dL Normal 8.6-10.3 Egfr Non- 70.1 >60 Egfr 84.8 >60 1 Laboratory 01/05/2020 [facility] TSH (Thyroid 3.18 Normal 0.34 -5.60 test finding [address] Stim Horm) mcIU/[place] [address] [phone] Magnesium 2.2 mg/dL Normal 1.9-2.7 CBC Auto 01/05/2020 [facility] White Blood 5.9 10^3/uL Normal 3.5-10.[address] [place] [address] [phone] Red Blood Count 4.41 10^6/uL Normal 3.70-4.87 [...] Nucleated Red Blood Cells % 0.1 Laboratory test 09/23/2019 [facility] Hemoglobin A1c 6.2 % High 4.0-5.[address] (Glyco HGB) [place] [address] [phone] Comp Metabolic 09/23/2019 [facility] Sodium 140 Normal 135- [address] mmol/[place] [address] [phone] Potassium 4.9 mmol/L Normal 3.5-5.0 Chloride 104 [...] Egfr 82.5 >60 3 Lipid Profile 09/23/2019 [facility] Triglycerides 161 mg/dL 4 (Trig/Chol/HDL) [address] [place] [address] [phone] Cholesterol 205 mg/dL 5 HDL Cholesterol 52.5 mg/dL 6 LDL Cholesterol 120 mg/dL 7 Laboratory test 08/25/2019 [facility] Cyclic Citrullinated < 15.6 U [address] [place] [address] [phone] C Reactive Protein 1.07 mg/L Normal <8.01 Laboratory test 07/17/2019 [facility] C Reactive 1.81 mg/L Normal <8.[address] [place] [address] [phone] Erythrocyte Sed Rate 17 mm/Hr Normal 0-29 CBC Auto 07/17/2019 [facility] White Blood 5.4 10^3/uL Normal 3.5-10.[address] [place] [address] [phone] Red Blood Count 4.54 10^6/uL Normal 3.70-4.87 Hemoglobin 13.9 g/dL Normal 12.0-16.0 Hematocrit 41 % Normal 35-47 Mean Corpuscular Volume 91 fL Normal 80-97 Mean Corpuscular Hemoglobin 31 pg Normal 27-31 Mean Corpuscular HGB Conc 34 g/dL Normal 31-36 Red Cell Distribution Width 14 % Normal 10-15 Platelet Count 288 10^3/uL Normal 150-450 Mean Platelet Volume 7.8 fL Normal 7.4-10.4 Abs Neutrophils 2.8 10^3/uL Normal 1.5-7.7 Abs Lymphocytes 1.9 10^3/uL Normal 1.0-4.8 Abs Monocytes 0.5 10^3/uL Normal 0-0.8 Abs Eosinophils 0.1 10^3/uL Normal 0-0.6 Abs Basophils 0.0 10^3/uL Normal 0-0.2 Abs Nucleated RBC 0.0 10^3/uL Granulocyte % 52.6 % Lymphocyte % 35.5 % Monocyte % 9.5 % Eosinophil % 1.5 % Basophil % 0.9 % Nucleated Red Blood Cells % 0.1 Comp Metabolic 07/17/2019 [facility] Sodium 137 mmol/L Normal 135-145 Panel [address] [place] [address] [phone] Potassium 4.2 mmol/L Normal 3.5-5.0 Chloride 102 mmol/L Normal 101-111 Co2 Carbon Dioxide 29 mmol/L Normal 22-32 Anion Gap 6 mmol/L Normal 2-11 Glucose 93 mg/dL Normal 70-100 Blood Urea Nitrogen 18 mg/dL Normal 6-24 Creatinine 0.84 mg/dL Normal 0.51-0.95 BUN/Creatinine Ratio 21.4 High 8-20 Calcium 9.7 mg/dL Normal 8.6-10.3 Total Protein 7.2 g/dL Normal 6.4-8.9 Albumin 4.9 g/dL Normal 3.2-5.2 Globulin 2.3 g/dL Normal 2-4 Albumin/Globulin Ratio 2.1 Normal 1-3 Total Bilirubin 0.40 mg/dL Normal 0.2-1.0 Alkaline Phosphatase 66 U/L Normal 34-104 Alt 13 U/L Normal 7-52 Ast 14 U/L Normal 13-39 Egfr Non- 67.2 >60 Egfr 81.3 >60 9 Payton Igg AB Reflex 07/17/2019 [facility] SS-A/Ro Antibody <0.2 U [address] [place] [address] [phone] SS-B/La Antibody <0.2 U 11 Sm (Salter) IgG Antibody <0.2 U 12 SINGLE NEEDLE OPERATOR Antibody, IgG <0.2 U 13 Scl-70 (Scleroderma) Antibody 0.2 U 14 Annalise-1 Antibody <0.2 U 15 Laboratory test 07/17/2019 [facility] Cyclic Citrullinated < 15.6 U [address] [place] [address] [phone] Anti Double Stranded Dna AB <12.3 IU/mL 17 Scleroderma AB (SCL70) 07/17/2019 [facility] Scleroderma Ab 0.2 U [address] [place] [address] [phone] Urinalysis Profile 07/17/2019 [facility] Urine Color Straw [address] [place] [address] [phone] Urine Appearance Clear Urine Specific [place] 1.005 Low 1.010-1.030 Urine pH 7.0 Normal 5-9 Urine Urobilinogen Negative Negative Urine Ketones Negative Negative Urine Protein Negative Negative Urine Leukocytes Negative Negative Urine Blood Negative Negative Urine Nitrite Negative Negative Urine Bilirubin Negative Negative Urine Glucose Negative Negative 1 Because ethnic data is not always [...] in selective patients <6.0%. Please refer to [place] [employer] Association diabetic care guidelines for further [...] REFERENCE VALUE <20.0 (Negative) Test Performed by: [place] [address] Superintendent Factory: Bernardo Sorto M.D. Ph.D.; CLIA# [id number] 9 Because ethnic data is not always readily [...] 15-29 5 Kidney failure <15 (or dialysis) 10 REFERENCE VALUE <1.0 (Negative) 11 REFERENCE VALUE <1.0 (Negative) 12 REFERENCE VALUE <1.0 (Negative) 13 REFERENCE VALUE <1.0 (Negative) 14 REFERENCE VALUE <1.0 (Negative) 15 REFERENCE VALUE <1.0 (Negative) Test Performed by: [facility] [address] [place] [address] Superintendent Factory: Bernardo Sorto M.D. Ph.D.; DIANA# [id number] 16 REFERENCE VALUE <20.0 (Negative) Test Performed by: [facility] [employer] [facility] [address] [place] [address] Superintendent Factory: Bernardo Sorto M.D. Ph.D.; QUENTINIA# [id number] 17 REFERENCE VALUE <30.0 (Negative) Test Performed by: [facility] [place] [address] [place] [id number] Superintendent Factory: Bernardo Sorto M.D. Ph.D.; CLIA# [id number] 18 REFERENCE VALUE <1.0 (Negative) Test Performed by: [place] [address] Superintendent Factory: Bernardo Sorto M.D. Ph.D.; CLIA# [id number] Procedures Date Code Description Status 01/05/2020 82547 EKG Tracing & Interpretation Completed 12/05/2019 [id number] Diabetic Retinal Eye Exam Completed 08/06/2019 16528 Polysomnography Sleep Staging 4+ Parameters Completed 08/30/2018 [id number] Mammogram Completed 02/15/2018 [id number] Diabetic Retinal Eye Exam Completed 07/16/2017 [id number] Mammogram Completed 07/13/2016 [id number] Mammogram Completed 06/22/2015 [id number] Mammogram Completed 05/25/2014 [id number] Mammogram Completed 05/25/2014 [id number] Bone Mineral Density Test Completed 06/11/2013 [id number] Colonoscopy Completed 11/15/2011 [id number] Mammogram Completed 11/15/2011 [id number] Bone Mineral Density Test Completed 02/14/2010 [id number] Mammogram Completed 12/30/2008 [id number] Mammogram Completed 12/30/2008 [id number] Bone Mineral Density Test Completed 06/22/2005 [id number] Diabetic Foot Exam Completed 04/02/2003 [id number] Colonoscopy Completed Medical Devices Description No Information Available Encounters Type Date Location Provider Dx Diagnosis Office Visit 01/08/2020 Pulmonology And Brenda Tavares, J47.9 Bronchiectasis, 10:30a [facility] Services Of [facility] almanzar Brim Setter Office Visit 09/25/2019 [facility] Internal Nimo Bob, Z00.00 Encntr for general 9:00a Medicine - Ccmob N.P. adult medical exam w/o abnormal findings Z12.31 Encntr screen mammogram for malignant neoplasm of breast E78.00 Pure hypercholesterolemia, unspecified R73.01 Impaired fasting glucose F41.1 Generalized anxiety disorder R05 Cough Z23 Encounter for immunization Office Visit 08/25/2019 Pulmonology And Brenda J47.9 Bronchiectasis, 8:30a Sleep Services Of MD Anusha uncomplicated [facility] Office Visit 07/17/2019 Rheumatology Clayofia J47.9 Bronchiectasis, 11:00a Services Of [facility] - KELIN Ocasio uncomplicated Ccmob R91.8 Other nonspecific abnormal finding of lung field Assessments Date Code Description Provider 01/08/2020 J47.9 Bronchiectasis, uncomplicated Brenda Tavares MD 01/05/2020 I49.9 Cardiac arrhythmia, unspecified Nimo Bob, N.P. 09/25/2019 Z00.00 Encounter for general adult medical examination Nimo Bob, N.P. without abnormal findings 09/25/2019 Z12.31 Encounter for screening mammogram for malignant Nimo Bob, N.P. neoplasm of breast 09/25/2019 E78.00 Pure hypercholesterolemia, unspecified Nimo Bob, N.P. 09/25/2019 R73.01 Impaired fasting glucose Nimo Bob, N.P. 09/25/2019 F41.1 Generalized anxiety disorder Nimo Bob, N.P. 09/25/2019 R05 Cough Nimo Bob, N.P. 09/25/2019 Z23 Encounter for immunization Nimo Bob, N.P. 08/25/2019 J47.9 Bronchiectasis, uncomplicated Brenda Tavares MD 08/06/2019 R06.83 Snoring Brenda Tavares MD 07/17/2019 J47.9 Bronchiectasis, uncomplicated KELIN Cruz 07/17/2019 R91.8 Other nonspecific abnormal finding of lung KELIN Cruz field Plan of Treatment Future Appointment(s):01/13/2021 10:30 am - Lyric Mayers NP at [facility]10/13/2020 9:20 am - Nimo Bob, N.P. at [facility] Internal Medicine - [facility]01/08/2020 - Brenda Tavaers MDJ47.9 Bronchiectasis, uncomplicatedFollow up:1 year Functional Status Description No Information Available Mental Status Description No Information Available Referrals Refer to Reason for Referral Status Appt Date Florentino Allison MD Patient with frequent PVCs referred for Sent evaluation and treatment. Thank you for seeing this very pleasant patient. [address] [facility] 4[address] [place] [address] [phone]
--- OUTSIDE RECORDS SUMMARY | 2020-02-18 11:00 | XMS REPORT | Continuity of Care Document ---
:1950 External Reference #:[id number] Author Name Nimo Bob NAdelita (transmitted by agent of provider Yessi Santana) Address [address], [place] [address] Problems Active Problems Provider Date Impaired fasting [...] age Unknown smoker 50 Smoking Status Reviewed: 01/05/20 Patient is a former Quit Age around [...] knee right 1units S83.511D Russ F 02/14/2018 [facility] [place] Loraine deficiency brace Freestyle Lite Test test twice daily 100units Nimo Varn, 02/07/2018 or as needed N.P. Strips Magnesium [...] + D 1 po bid 60tabs Unknown [id number] Tablets History Medications Tamiflu 1 by mouth [...] Code Status Date Vaccine Reaction Lot # [id number] Given 09/25/2019 Tetanus And Diptheria (Td) No immediate reaction [id number] For Adult Use Preservative Free 23480 Given 07/17/2018 Pneumonia Vaccine No immediate [id number] reaction.. 06629 Given 07/17/2018 Influenza Virus Vaccine, No immediate [id number] Quadrivalent, Split, reaction... Preservative Free Q2039 Given 08/01/2016 Flu Vaccine NOS 62710 Given 08/11/2015 Flu Vaccine Split Virus Preservative Free For Indiv 3Yr Older 78423 Given 06/02/2015 Pneumococcal Conjugate [id number] Vaccine 13 Valent For Intramuscular Use 76345 Given 08/12/2014 Flu Vaccine Split Virus Preservative Free For Indiv 3Yr Older 58557 Given 08/12/2014 Flu Vaccine Split Virus [id number] Preservative Free For Indiv 3Yr Older 56654 Given 08/05/2013 Flu Vaccine Split Virus [id number] Preservative Free For Indiv 3Yr Older 88123 Given 12/05/2012 Zoster (Zostavax) [id number] 50911 Given 04/09/2012 Pneumonia Vaccine [id number] 41963 Given 12/16/2008 Tdap - Tetanus/Diptheria/Acellular Pertussis 40089 Given Unknown Pneumonia Vaccine Vital Signs Date Vital Result Comment 01/05/2020 11:31am Height 64.5 inches 5'4.50" Weight 132.38 lb Heart Rate 96 /min BP Systolic Sitting 135 mmHg BP Diastolic Sitting 72 mmHg Body Temperature 97.8 F O2 % BldC Oximetry 97 % BMI (Body Mass Index) 22.4 kg/m2 09/25/2019 9:07am Height 64.5 inches 5'4.50" Weight 134.00 lb Heart Rate 106 /min BP Systolic Sitting 138 mmHg BP Diastolic Sitting 81 mmHg Body Temperature 97.6 F O2 % BldC Oximetry 98 % BMI (Body Mass Index) 22.6 kg/m2 Results Test Acquired Date Facility Test Result H/L Range Note Order 01/05/2020 [facility] In-House EKG <pending> Laboratory test 09/23/2019 [facility] Hemoglobin A1c 6.2 % High 4.0-5.[address] (Glyco HGB) [place] [address] [phone] Comp Metabolic 09/23/2019 [facility] Sodium 140 mmol/L Normal 135-[address] [place] [address] [phone] Potassium 4.9 mmol/L Normal 3.5-5.0 Chloride 104 [...] Egfr Non- 68.2 >60 Egfr 82.5 >60 2 Lipid Profile 09/23/2019 [facility] Triglycerides 161 mg/dL 3 (Trig/Chol/HDL) [address] [place] [address] [phone] Cholesterol 205 mg/dL 4 HDL Cholesterol 52.5 mg/dL 5 LDL Cholesterol 120 mg/dL 6 Laboratory test 08/25/2019 [facility] Cyclic Citrullinated < 15.6 U [address] [place] [address] [phone] C Reactive Protein 1.07 mg/L Normal <8.01 Laboratory test 07/17/2019 [facility] C Reactive 1.81 mg/L Normal <8.[address] [place] [address] [phone] Erythrocyte Sed Rate 17 mm/Hr Normal 0-29 CBC Auto 07/17/2019 [facility] White Blood 5.4 10^3/uL Normal 3.5-10.[address] [place] [address] [phone] Red Blood Count 4.54 10^6/uL Normal 3.70-4.87 [...] Blood Cells % 0.1 Comp Metabolic 07/17/2019 [facility] Sodium 137 mmol/L Normal 135-145 Panel [address] [place] [address] [phone] Potassium 4.2 mmol/L Normal 3.5-5.0 Chloride 102 [...] Egfr Non- 67.2 >60 Egfr 81.3 >60 8 Payton Igg AB Reflex 07/17/2019 [facility] SS-A/Ro Antibody <0.2 U [address] [place] [address] [phone] SS-B/La Antibody <0.2 U 10 Sm (Salter) IgG Antibody <0.2 U 11 POND SUPERVISOR Antibody, IgG <0.2 U 12 Scl-70 (Scleroderma) Antibody 0.2 U 13 Annalise-1 Antibody <0.2 U 14 Laboratory test 07/17/2019 [facility] Cyclic Citrullinated < 15.6 U [address] [place] [address] [phone] Anti Double Stranded Dna AB <12.3 IU/mL 16 Scleroderma AB (SCL70) 07/17/2019 [facility] Scleroderma Ab 0.2 U [address] [place] [address] [phone] Urinalysis Profile 07/17/2019 [facility] Urine Color Straw [address] [place] [address] [phone] Urine Appearance Clear Urine Specific [place] 1.005 Low 1.010-1.030 Urine pH 7.0 Normal 5-9 Urine Urobilinogen Negative Negative Urine Ketones Negative Negative Urine Protein Negative Negative Urine Leukocytes Negative Negative Urine Blood Negative Negative Urine Nitrite Negative Negative Urine Bilirubin Negative Negative Urine Glucose Negative Negative 1 Therapeutic target for the treatment of diabetes mellitus patients is <7% HBA1C, and in selective patients <6.0%. Please refer to [place] Diabetes Association diabetic care guidelines for further information. 2 Because ethnic data is not always readily [...] 15-29 5 Kidney failure <15 (or dialysis) 3 Desirable: <150 Borderline High: 150-199 High: 200-499 Very High: >500 4 Desirable: <200 Borderline High: 200-239 High: >239 5 Low: <40 Desirable: 40-60 High: >60 6 Desirable: <100 Near Optimal: 100-129 Borderline High: 130-159 High: 160-189 Very High: >189 7 REFERENCE VALUE <20.0 (Negative) Test Performed by: [facility] [address] [place] [address] Mechanic Chief: Bernardo Sorto M.D. Ph.D.; [facility]# [id number] 8 Because ethnic data is not always readily [...] 15-29 5 Kidney failure <15 (or dialysis) 9 REFERENCE VALUE <1.0 (Negative) 10 REFERENCE VALUE <1.0 (Negative) 11 REFERENCE VALUE <1.0 (Negative) 12 REFERENCE VALUE <1.0 (Negative) 13 REFERENCE VALUE <1.0 (Negative) 14 REFERENCE VALUE <1.0 (Negative) Test Performed by: [facility] [place] [address] Mechanic Chief: Bernardo Sorto M.D. Ph.D.; CLIA# [id number] 15 REFERENCE VALUE <20.0 (Negative) Test Performed by: [place] [address] Mechanic Chief: Bernardo Sorto M.D. Ph.D.; CLIA# [id number] 16 REFERENCE VALUE <30.0 (Negative) Test Performed by: [place] [address] Mechanic Chief: Bernardo Sorto M.D. Ph.D.; CLIA# [id number] 17 REFERENCE VALUE <1.0 (Negative) Test Performed by: [place] [address] Mechanic Chief: Bernardo Sorto M.D. Ph.D.; CLPAPA# [id number] Procedures Date Code Description Status 01/05/2020 40274 EKG Tracing & Interpretation Completed 12/05/2019 [id number] Diabetic Retinal Eye Exam Completed 08/06/2019 00341 Polysomnography Sleep Staging 4+ Parameters Completed 08/30/2018 [id number] Mammogram Completed 02/15/2018 [id number] Diabetic Retinal Eye Exam Completed 07/16/2017 [id number] Mammogram Completed 07/13/2016 [id number] Mammogram Completed 06/22/2015 [id number] Mammogram Completed 05/25/2014 [id number] Mammogram Completed 05/25/2014 [id number] Bone Mineral Density Test Completed 06/11/2013 [id number] Colonoscopy Completed 11/15/2011 [id number] Mammogram Completed 11/15/2011 [id number] Bone Mineral Density Test Completed 02/14/2010 [id number] Mammogram Completed 12/30/2008 [id number] Mammogram Completed 12/30/2008 [id number] Bone Mineral Density Test Completed 06/22/2005 [id number] Diabetic Foot Exam Completed 04/02/2003 [id number] Colonoscopy Completed Medical Devices Description No Information Available Encounters Type Date Location Provider Dx Diagnosis Office Visit 09/25/2019 [facility] Internal Nimo Bob, Z00.00 Encntr for general 9:00a Medicine - Ccmob N.P. adult medical exam w/o abnormal findings Z12.31 Encntr screen mammogram for malignant neoplasm of breast E78.00 Pure hypercholesterolemia, unspecified R73.01 Impaired fasting glucose F41.1 Generalized anxiety disorder R05 Cough Z23 Encounter for immunization Office Visit 08/25/2019 Pulmonology And Brenda J47.9 Bronchiectasis, 8:30a Sleep Services Of MD Anusha uncomplicated [facility] Office Visit 07/17/2019 Rheumatology Zsofia J47.9 Bronchiectasis, 11:00a Services Of [facility] KELIN Hudson uncomplicated [facility] R91.8 Other nonspecific abnormal finding of lung field Assessments Date Code Description Provider 01/05/2020 I49.9 Cardiac arrhythmia, unspecified Nimo Bob, N.P. 09/25/2019 Z00.00 Encounter for general adult medical examination Nimo Bob, N.P. without abnormal findings 09/25/2019 Z12.31 Encounter for screening mammogram for malignant Nimo Bob, N.P. neoplasm of breast 09/25/2019 E78.00 Pure hypercholesterolemia, unspecified Nimo Bob, N.P. 09/25/2019 R73.01 Impaired fasting glucose Nimo Bob N.P. 09/25/2019 F41.1 Generalized anxiety disorder Joycelyn Barron.P. 09/25/2019 R05 Cough Joycelyn Barron.PDavid 09/25/2019 Z23 Encounter for immunization Nimo Bob N.PDavid 08/25/2019 J47.9 Bronchiectasis, uncomplicated Brenda Tavares MD 08/06/2019 R06.83 Snoring Brenda Tavares MD 07/17/2019 J47.9 Bronchiectasis, uncomplicated KELIN Cruz 07/17/2019 R91.8 Other nonspecific abnormal finding of lung KELIN Cruz field Plan of Treatment Future Appointment(s):10/13/2020 9:20 am - Nimo Bob N.P. at [facility] Internal Medicine - [facility]01/05/2020 - Nimo Bob N.P.I49.9 Cardiac arrhythmia, unspecifiedComments:You are having frequent premature ventricular contractions. I strongly urge you to avoid caffeine and stay hydrated. I am ordering blood work to check your electrolytes, thyroid level, magnesium level,and CBC. The office will contact you with your results. I am referring you to Dr Allison to establishcare.Referral:Florentino Allison MD, Cardiovsclr Disease Functional Status Description No Information Available Mental Status Description No Information Available Referrals Refer to Reason for Referral Status Appt Date Florentino Allison MD Patient with frequent PVCs referred for Created evaluation and treatment. Thank you for seeing this very pleasant patient. [address] [facility] 4TH [place] [address] [phone]
--- OUTSIDE RECORDS SUMMARY | 2020-02-18 11:00 | XMS REPORT | Continuity of Care Document ---
:1950 External Reference #:[id number] Author Name Nimo Bob N.Naz (transmitted by agent of provider Danika Navas) Address [address], [place] [address] Problems Active Problems Provider Date Impaired fasting [...] Clonazepam take 1/2 to 1 60tabs Nimo Bob, 06/12/2019 1mg tablet by mouth N.P. Tablets two times daily - maximum daily dose of 2 per day Flutter use as instructed 1units J47.9 Brenda Tavares, 05/15/2019 Device twice a day Knee Brace left knee right 1units S83.511D Russ F 02/14/2018 [facility] knee acl MD Loraine deficiency brace Freestyle Lite Test test twice daily 100units Nimo Bob, 02/07/2018 or as needed N.P. Strips Magnesium [...] + D 1 po bid 60tabs Unknown [id number] Tablets History Medications Tamiflu 1 by mouth daily 10caps Nimo Paulino, 2020 - 75mg Capsules for 10 days [...] Code Status Date Vaccine Reaction Lot # [id number] Given 09/25/2019 Tetanus And Diptheria (Td) No immediate reaction [id number] For Adult Use Preservative Free 00827 Given 07/17/2018 Pneumonia Vaccine No immediate [id number] reaction.. 49138 Given 07/17/2018 Influenza Virus Vaccine, No immediate [id number] Quadrivalent, Split, reaction... Preservative Free Q2039 Given 08/01/2016 Flu Vaccine NOS 68015 Given 08/11/2015 Flu Vaccine Split Virus Preservative Free For Indiv 3Yr Older 96486 Given 06/02/2015 Pneumococcal Conjugate [id number] Vaccine 13 Valent For Intramuscular Use 68241 Given 08/12/2014 Flu Vaccine Split Virus Preservative Free For Indiv 3Yr Older 69525 Given 08/12/2014 Flu Vaccine Split Virus [id number] Preservative Free For Indiv 3Yr Older 63420 Given 08/05/2013 Flu Vaccine Split Virus [id number] Preservative Free For Indiv 3Yr Older 25456 Given 12/05/2012 Zoster (Zostavax) [id number] 52580 Given 04/09/2012 Pneumonia Vaccine [id number] 16310 Given 12/16/2008 Tdap - Tetanus/Diptheria/Acellular Pertussis 06808 Given Unknown Pneumonia Vaccine Vital Signs Date [...] Result H/L Range Note CBC Auto 01/05/2020 [facility] White Blood 5.9 10^3/uL Normal 3.5-10.[address] [place] [address] [phone] Red Blood Count 4.41 10^6/uL Normal 3.70-4.87 [...] Red Blood Cells % 0.1 Laboratory 01/05/2020 [facility] TSH (Thyroid 3.18 Normal 0.34 -5.[address] Stim Horm) mcIU/[place] [address] [phone] Magnesium 2.2 mg/dL Normal 1.9-2.7 Basic Metabolic 01/05/2020 [facility] Sodium 140 mmol/L Normal 135-145 [place] [address] [phone] Potassium 4.3 mmol/L Normal 3.5-5.0 Chloride 105 mmol/L Normal 101-111 Co2 Carbon Dioxide 26 mmol/L Normal 22-32 Anion Gap 9 mmol/L Normal 2-11 Glucose 98 mg/dL Normal 70-100 Blood Urea Nitrogen 17 mg/dL Normal 6-24 Creatinine 0.81 mg/dL Normal 0.51-0.95 BUN/Creatinine Ratio 21.0 High 8-20 Calcium 10.1 mg/dL Normal 8.6-10.3 Egfr Non- 70.1 >60 Egfr 84.8 >60 1 Laboratory test 09/23/2019 [facility] Hemoglobin A1c 6.2 % High 4.0-5.6 2 finding 101 (Glyco HGB) [place] [address] [phone] Comp Metabolic 09/23/2019 [facility] Sodium 140 Normal 135- [address] mmol/[place] [address] [phone] Potassium 4.9 mmol/L Normal 3.5-5.0 Chloride 104 [...] Egfr 82.5 >60 3 Lipid Profile 09/23/2019 [facility] Triglycerides 161 mg/dL 4 (Trig/Chol/HDL) [address] [place] [address] [phone] Cholesterol 205 mg/dL 5 HDL Cholesterol 52.5 mg/dL 6 LDL Cholesterol 120 mg/dL 7 Laboratory test 08/25/2019 [facility] Cyclic Citrullinated < 15.6 U [address] [place] [address] [phone] C Reactive Protein 1.07 mg/L Normal <8.01 [...] in selective patients <6.0%. Please refer to [place] [employer] diabetic care guidelines for further [...] REFERENCE VALUE <20.0 (Negative) Test Performed by: [facility] [address] [place] [address] Cyber Security Administrator: Bernardo Sorto M.D. Ph.D.; CLIA# [id number] Procedures Date Code Description Status 01/19/2020 97919 EKG Tracing & Interpretation Completed 01/05/2020 97829 EKG Tracing & Interpretation Completed 12/05/2019 507709107 Diabetic Retinal Eye Exam Completed 08/06/2019 50836 Polysomnography Sleep Staging 4+ Parameters Completed 08/30/2018 [id number] Mammogram Completed 02/15/2018 [id number] Diabetic Retinal Eye Exam Completed 07/16/2017 20981775 Mammogram Completed 07/13/2016 14651544 Mammogram Completed 06/22/2015 10563534 Mammogram Completed 05/25/2014 98529813 Mammogram Completed 05/25/2014 322387001 Bone Mineral Density Test Completed 06/11/2013 62389607 Colonoscopy Completed 11/15/2011 [id number] Mammogram Completed 11/15/2011 187432344 Bone Mineral Density Test Completed 02/14/2010 19152706 Mammogram Completed 12/30/2008 96415732 Mammogram Completed 12/30/2008 304763172 Bone Mineral Density Test Completed 06/22/2005 748894627 Diabetic Foot Exam Completed 04/02/2003 23792283 Colonoscopy Completed Medical Devices Description No Information Available Encounters Type Date Location Provider Dx Diagnosis Office Visit 01/08/2020 Pulmonology And Brenda Anusha J47.9 Bronchiectasis, 10:30a Sleep Services Of uncomplicated [facility] Office Visit 01/05/2020 [facility] Internal Nimo Bob, I49.3 Ventricular premature 11:20a Medicine - [facility] N.P. depolarization Office Visit 09/25/2019 [facility] Internal Nimo Bob, Z00.00 Encntr for general 9:00a Medicine - Ccmob N.P. adult medical exam w/o abnormal findings Z12.31 Encntr screen mammogram for malignant neoplasm of breast E78.00 Pure hypercholesterolemia, unspecified R73.01 Impaired fasting glucose F41.1 Generalized anxiety disorder R05 Cough Z23 Encounter for immunization Office Visit 08/25/2019 PulmonLaura J47.9 Bronchiectasis, 8:30a Sleep Services Of MD Anusha uncomplicated [facility] Assessments Date Code Description Provider 01/19/2020 J47.9 Bronchiectasis, uncomplicated Florentino Allison M.D. 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 01/19/2020 I34.0 Nonrheumatic mitral (valve) insufficiency Florentino Allison M.D. 01/19/2020 R94.31 Abnormal electrocardiogram [ECG] [EKG] Florentino Allison M.D. 01/19/2020 R03.0 Elevated blood-pressure reading, without Florentino Allison M.D. diagnosis of hypertension 01/08/2020 J47.9 Bronchiectasis, uncomplicated Brenda Tavares MD 01/05/2020 I49.3 Ventricular premature depolarization Nimo Bob, N.P. 01/05/2020 I49.3 Ventricular premature depolarization Shaunna Brooks MD 09/25/2019 Z00.00 Encounter for general adult medical Nimo Bob N.P. examination without abnormal findings 09/25/2019 Z12.31 Encounter [...] MD 08/06/2019 R06.83 Snoring Brenda Tavares MD Plan of Treatment Future Appointment(s):03/18/2020 11:00 am - Chantell Navarro NAdelita at [facility]02/13/2020 8:30 am - Nurse Visit cc at [facility]02/12/2020 10 :00 am - Nurse Visit cc at [facility]02/16/2020 10:00 am - [place] [facility] Schedule at [facility]03/10/2020 10:00 am - [place] [facility] Schedule at [facility]03/10/2020 10:30 am - Florentino Allison M.D. at [facility]01/13/2021 10:30 am - Lyric Mayers NP at [facility]10/13/2020 9:20 am - Nimo Bob N.PDavid at [facility] Internal Medicine - [facility]01/19/2020 - Florentino Allison M.D.J47.9 Bronchiectasis, ksupwuxnkysvdQ98.3 Ventricular premature depolarizationNew Orders:Holter Monitor , Scheduled: 02/12/20Recommendations:reduce caffeine. increase regular moderate exercise to 30 min 4-5 times/weekI34.0 Nonrheumatic mitral (valve) insufficiencyNew Orders:Echocardiogram, Scheduled: 02/16/20R94.31 Abnormal electrocardiogram [ECG] [EKG]New Orders:Stress Test, Exercise Echocardiogram, Scheduled: 03/10/20Follow up:ov Chantell 2 m ov JFM 8 mR03.0 Elevated blood- pressure reading, without diagnosis of hypertensionRecommendations:bring home unit to next visit. Functional Status Description No Information Available Mental Status Description No Information Available Referrals Refer to Reason for Referral Status Appt Date Florentino Allison MD Patient with frequent PVCs referred for Sent 01/19/2020 evaluation and treatment. Thank you for seeing this very pleasant patient. [address] [facility] 4TH [place] [address] [phone]
--- OUTSIDE RECORDS SUMMARY | 2020-02-18 11:00 | XMS REPORT | Continuity of Care Document ---
:1950 External Reference #:[id number] Author Name Brenda Tavares MD Address [address], [address] [place] [address] Problems Active Problems Provider Date Impaired fasting [...] knee right 1units S83.511D Russ F 02/14/2018 [facility] knee acl MD Loraine deficiency brace Freestyle Lite Test test twice daily 100units Nimo Paulino, 02/07/2018 or as needed N.P. Strips Magnesium 1 by mouth every 90tabs Nimo Paulino, 08/23/2017 200mg day N.P. Tablets Proair HFA 2 puffs four times 1units J98.4 Nimo Paulino, 09/20/2015 a day as needed N.P. 108(90Base) mcg/Act dyspnea Aerosol Zovirax 1 tablet 5 times a 75caps Nimo Bob, 10/10/2011 200mg day for 5 days as N.P. Capsules needed Propranolol HCL 1 by mouth once 30tabs Nimo Bob, 06/06/2010 daily as needed N.P. 10mg Tablets for anxiety Calcium 600 + D 1 po bid 60tabs Unknown [id number] Tablets History Medications Tamiflu 1 by mouth [...] Code Status Date Vaccine Reaction Lot # 24921 Given 09/25/2019 Tetanus And Diptheria (Td) No immediate reaction [id number] For Adult Use Preservative Free 00733 Given 07/17/2018 Pneumonia Vaccine No immediate [id number] reaction.. 39381 Given 07/17/2018 Influenza Virus Vaccine, No immediate [id number] Quadrivalent, Split, reaction... Preservative Free Q2039 Given 08/01/2016 Flu Vaccine NOS 52789 Given 08/11/2015 Flu Vaccine Split Virus Preservative Free For Indiv 3Yr Older 42090 Given 06/02/2015 Pneumococcal Conjugate [id number] Vaccine 13 Valent For Intramuscular Use 63608 Given 08/12/2014 Flu Vaccine Split Virus Preservative Free For Indiv 3Yr Older 36641 Given 08/12/2014 Flu Vaccine Split Virus [id number] Preservative Free For Indiv 3Yr Older 94277 Given 08/05/2013 Flu Vaccine Split Virus [id number] Preservative Free For Indiv 3Yr Older 56313 Given 12/05/2012 Zoster (Zostavax) [id number] 81639 Given 04/09/2012 Pneumonia Vaccine [id number] 56413 Given 12/16/2008 Tdap - Tetanus/Diptheria/Acellular Pertussis 81882 Given Unknown Pneumonia Vaccine Vital Signs Date [...] Range Note Basic Metabolic 01/05/2020 [facility] Sodium 140 mmol/L Normal 135-145 Panel [address] [place] [address] [phone] Potassium 4.3 mmol/L Normal 3.5-5.0 Chloride 105 mmol/L Normal 101-111 Co2 Carbon Dioxide 26 mmol/L Normal 22-32 Anion Gap 9 mmol/L Normal 2-11 Glucose 98 mg/dL Normal 70-100 Blood Urea Nitrogen 17 mg/dL Normal 6-24 Creatinine 0.81 mg/dL Normal 0.51-0.95 BUN/Creatinine Ratio 21.0 High 8-20 Calcium 10.1 mg/dL Normal 8.6-10.3 Egfr Non- 70.1 >60 Egfr 84.8 >60 1 Laboratory 01/05/2020 [facility] TSH (Thyroid 3.18 Normal 0.34 -5.60 test finding [address] Stim Horm) mcIU/mL [place], [place] [id number] [phone] Magnesium 2.2 mg/dL Normal 1.9-2.7 CBC Auto 01/05/2020 [facility] White Blood 5.9 10^3/uL Normal 3.5-10.[address] [place] [address] [phone] Red Blood Count 4.41 10^6/uL Normal 3.70-4.87 [...] % 0.1 Laboratory test 09/23/2019 [facility] Hemoglobin A1c 6.2 % High 4.0-5.[address] (Glyco HGB) [place], [place] [id number] [phone] Comp Metabolic 09/23/2019 [facility] Sodium 140 Normal 135- [address] mmol/[place] [address] [phone] Potassium 4.9 mmol/L Normal 3.5-5.0 Chloride 104 [...] >60 3 Lipid Profile 09/23/2019 [facility] Triglycerides 161 mg/dL 4 (Trig/Chol/HDL) [address] [place] [address] [phone] Cholesterol 205 mg/dL 5 HDL Cholesterol 52.5 mg/dL 6 LDL Cholesterol 120 mg/dL 7 Laboratory test 08/25/2019 [facility] Cyclic Citrullinated < 15.6 U [address] [place] [address] [phone] C Reactive Protein 1.07 mg/L Normal <8.01 Laboratory test 07/17/2019 [facility] C Reactive 1.81 mg/L Normal <8.[address] [place] [address] [phone] Erythrocyte Sed Rate 17 mm/Hr Normal 0-29 CBC Auto 07/17/2019 [facility] White Blood 5.4 10^3/uL Normal 3.5-10.[address] [place] [address] [phone] Red Blood Count 4.54 10^6/uL Normal 3.70-4.87 [...] % 0.1 Comp Metabolic 07/17/2019 [facility] Sodium 137 mmol/L Normal 135-145 Panel [address] [place] [address] [phone] Potassium 4.2 mmol/L Normal 3.5-5.0 Chloride 102 [...] Payton Igg AB Reflex 07/17/2019 [facility] SS-A/Ro Antibody <0.2 U [address] [place] [address] [phone] SS-B/La Antibody <0.2 U 11 Sm (Salter) IgG Antibody <0.2 U 12 BUSINESS PERFORMANCE SPECIALIST Antibody, IgG <0.2 U 13 Scl-70 (Scleroderma) Antibody 0.2 U 14 Annalise-1 Antibody <0.2 U 15 Laboratory test 07/17/2019 [facility] Cyclic Citrullinated < 15.6 U [address] [place] [address] [phone] Anti Double Stranded Dna AB <12.3 IU/mL 17 Scleroderma AB (SCL70) 07/17/2019 [facility] Scleroderma Ab 0.2 U [address] [place] [address] [phone] Urinalysis Profile 07/17/2019 [facility] Urine Color Straw [address] [place] [address] [phone] Urine Appearance Clear Urine Specific [place] 1.005 Low 1.010-1.030 Urine pH 7.0 Normal [...] in selective patients <6.0%. Please refer to [place] Diabetes Association diabetic care guidelines for further [...] REFERENCE VALUE <20.0 (Negative) Test Performed by: [place] [address] Line Analyst: Bernardo Sorto M.D. Ph.D.; [facility]# [id number] Because ethnic data is not always [...] REFERENCE VALUE <1.0 (Negative) Test Performed by: [employer] [facility] [email or web address] [place] [address] Line Analyst: Bernardo Sorto M.D. Ph.D.; DIANA# [id number] REFERENCE VALUE <20.0 (Negative) Test Performed by: [facility] [email or web address] [place] [address] Line Analyst: Bernardo Sorto M.D. Ph.D.; DIANA# [id number] REFERENCE VALUE <30.0 (Negative) Test Performed by: [place] [id number] Line Analyst: Bernardo Sorto M.D. Ph.D.; CLIA# [id number] REFERENCE VALUE <1.0 (Negative) Test Performed by: [place] [address] Line Analyst: Bernardo Sorto M.D. Ph.D.; CLIA# [id number] Procedures Date Code Description Status 01/05/2020 99354 EKG Tracing & Interpretation Completed 12/05/2019 [id number] Diabetic Retinal Eye Exam Completed 08/06/2019 85741 Polysomnography Sleep Staging 4+ Parameters Completed 08/30/2018 99893020 Mammogram Completed 02/15/2018 221464570 Diabetic Retinal Eye Exam Completed 07/16/2017 43579624 Mammogram Completed 07/13/2016 75801667 Mammogram Completed 06/22/2015 40802839 Mammogram Completed 05/25/2014 91371165 Mammogram Completed 05/25/2014 213118440 Bone Mineral Density Test Completed 06/11/2013 36648004 Colonoscopy Completed 11/15/2011 36835140 Mammogram Completed 11/15/2011 448326464 Bone Mineral Density Test Completed 02/14/2010 11759700 Mammogram Completed 12/30/2008 52663349 Mammogram Completed 12/30/2008 208584769 Bone Mineral Density Test Completed 06/22/2005 177768265 Diabetic Foot Exam Completed 04/02/2003 25724405 Colonoscopy Completed Medical Devices Description No Information Available Encounters Type Date Location Provider Dx Diagnosis Office Visit 01/08/2020 Pulmonology And Brenda Tavares, J47.9 Bronchiectasis, 10:30a Sleep Services Of MD almanzar Human Resource Statistician Office Visit 09/25/2019 [facility] Internal Nimo Bob, Z00.00 Encntr for general 9:00a Medicine - Ccmob N.P. adult medical exam w/o abnormal findings Z12.31 Encntr screen mammogram for malignant neoplasm of breast E78.00 Pure hypercholesterolemia, unspecified R73.01 Impaired fasting glucose F41.1 Generalized anxiety disorder R05 Cough Z23 Encounter for immunization Office Visit 08/25/2019 Pulmonology And Brenda J47.9 Bronchiectasis, 8:30a Sleep Services Of MD Anusha uncomplicated [facility] Office Visit 07/17/2019 Rheumatology Clayofikaveh J47.9 Bronchiectasis, 11:00a Services Of [facility] - [facility]ELIN Ocasio uncomplicated [facility] R91.8 Other nonspecific abnormal finding of lung field Assessments Date Code Description Provider 01/08/2020 J47.9 Bronchiectasis, uncomplicated Brenda Tavares MD 01/05/2020 I49.9 Cardiac arrhythmia, unspecified Nimo Bob, N.P. 09/25/2019 Z00.00 Encounter for general adult medical examination Nimo Bob N.P. without abnormal findings 09/25/2019 Z12.31 Encounter [...] NP [facility] 9:20 am - Nimo Bob, N.P. at [facility] Internal Medicine - [facility]01/08/2020 - Brenda Tavares MDJ47.9 Bronchiectasis, uncomplicatedFollow up:1 year Functional Status Description No Information Available Mental Status Description No Information Available Referrals Refer to Reason for Referral Status Appt Date Mauser, Florentino, MD Patient with frequent PVCs referred for Sent evaluation and treatment. Thank you for seeing this very pleasant patient. [address] [facility] 4TH [place] [address] [phone]
--- OUTSIDE RECORDS SUMMARY | 2020-02-18 11:00 | XMS REPORT | Continuity of Care Document ---
:1950 External Reference #:[id number] Author Name Florentino Allison M.D. (transmitted by agent of provider Litzy Goins) Address [address] [facility] [address] [place] [address] Problems Active Problems Provider Date Impaired fasting [...] knee right 1units S83.511D Russ F 02/14/2018 [facility] knee acl MD Loraine deficiency [...] + D 1 po bid 60tabs Unknown [id number] Tablets History Medications Tamiflu 1 by mouth [...] Code Status Date Vaccine Reaction Lot # 24731 Given 09/25/2019 Tetanus And Diptheria (Td) No immediate reaction [id number] For Adult Use Preservative Free 35486 Given 07/17/2018 Pneumonia Vaccine No immediate [id number] reaction..jh 33017 Given 07/17/2018 Influenza Virus Vaccine, No immediate [id number] Quadrivalent, Split, reaction... Preservative Free Q2039 Given 08/01/2016 Flu Vaccine NOS 27031 Given 08/11/2015 Flu Vaccine Split Virus Preservative Free For Indiv 3Yr Older 31316 Given 06/02/2015 Pneumococcal Conjugate [id number] Vaccine 13 Valent For Intramuscular Use 26155 Given 08/12/2014 Flu Vaccine Split Virus Preservative Free For Indiv 3Yr Older 62184 Given 08/12/2014 Flu Vaccine Split Virus [id number] Preservative Free For Indiv 3Yr Older 82485 Given 08/05/2013 Flu Vaccine Split Virus [id number] Preservative Free For Indiv 3Yr Older 24574 Given 12/05/2012 Zoster (Zostavax) [id number] 96165 Given 04/09/2012 Pneumonia Vaccine [id number] 84955 Given 12/16/2008 Tdap - Tetanus/Diptheria/Acellular Pertussis 02287 Given Unknown Pneumonia Vaccine Vital Signs Date [...] Result H/L Range Note CBC Auto 01/05/2020 [facility] White Blood 5.9 10^3/uL Normal 3.5-10.[address] [place] [address] [phone] Red Blood Count 4.41 10^6/uL Normal 3.70-4.87 [...] Red Blood Cells % 0.1 Laboratory 01/05/2020 [facility] TSH (Thyroid 3.18 Normal 0.34 -5.[address] Stim Horm) mcIU/[place] [address] [phone] Magnesium 2.2 mg/dL Normal 1.9-2.7 Basic Metabolic 01/05/2020 [facility] Sodium 140 mmol/L Normal 135-[address] [place] [address] [phone] Potassium 4.3 mmol/L Normal 3.5-5.0 Chloride 105 mmol/L Normal 101-111 Co2 Carbon Dioxide 26 mmol/L Normal 22-32 Anion Gap 9 mmol/L Normal 2-11 Glucose 98 mg/dL Normal 70-100 Blood Urea Nitrogen 17 mg/dL Normal 6-24 Creatinine 0.81 mg/dL Normal 0.51-0.95 BUN/Creatinine Ratio 21.0 High 8-20 Calcium 10.1 mg/dL Normal 8.6-10.3 Egfr Non- 70.1 >60 Egfr 84.8 >60 1 Laboratory test 09/23/2019 [facility] Hemoglobin A1c 6.2 % High 4.0-5.[address] (Glyco HGB) [place] [address] [phone] Comp Metabolic 09/23/2019 [facility] Sodium 140 Normal 135- [address] mmol/[place] [address] [phone] Potassium 4.9 mmol/L Normal 3.5-5.0 Chloride 104 [...] Egfr 82.5 >60 3 Lipid Profile 09/23/2019 [facility] Triglycerides 161 mg/dL 4 (Trig/Chol/HDL) [address] [place] [address] [phone] Cholesterol 205 mg/dL 5 HDL Cholesterol 52.5 mg/dL 6 LDL Cholesterol 120 mg/dL 7 Laboratory test 08/25/2019 [facility] Cyclic Citrullinated < 15.6 U [address] [place] [address] [phone] C Reactive Protein 1.07 mg/L Normal <8.01 [...] in selective patients <6.0%. Please refer to [place] Diabetes Association diabetic care guidelines for further [...] REFERENCE VALUE <20.0 (Negative) Test Performed by: [address] [address] Powerhouse Electrician: Bernadro Sorto M.D. Ph.D.; CLIA# [id number] Procedures Date Code Description Status 01/19/2020 99746 EKG Tracing & Interpretation Completed 01/05/2020 34459 EKG Tracing & Interpretation Completed 12/05/2019 [id number] Diabetic Retinal Eye Exam Completed 08/06/2019 65216 Polysomnography Sleep Staging 4+ Parameters Completed 08/30/2018 [id number] Mammogram Completed 02/15/2018 [id number] Diabetic Retinal Eye Exam Completed 07/16/2017 [id number] Mammogram Completed 07/13/2016 [id number] Mammogram Completed 06/22/2015 [id number] Mammogram Completed 05/25/2014 90459875 Mammogram Completed 05/25/2014 [id number] Bone Mineral Density Test Completed 06/11/2013 [id number] Colonoscopy Completed 11/15/2011 87171350 Mammogram Completed 11/15/2011 552311730 Bone Mineral Density Test Completed 02/14/2010 05246770 Mammogram Completed 12/30/2008 [id number] Mammogram Completed 12/30/2008 [id number] Bone Mineral Density Test Completed 06/22/2005 242265587 Diabetic Foot Exam Completed 04/02/2003 15302293 Colonoscopy Completed Medical Devices Description No Information Available Encounters Type Date Location Provider Dx Diagnosis Office Visit 01/19/2020 [facility] Florentino Spangler47.9 Bronchiectasis , 9:40a Brianna Allison uncomplicated I49.3 Ventricular premature depolarization I34.0 Nonrheumatic mitral (valve) insufficiency R94.31 Abnormal electrocardiogram [ECG] [EKG] R03.0 Elevated blood-pressure reading, w/o diagnosis of htn R00.2 Palpitations Office Visit 01/08/2020 [facility] Brenda J47.9 Bronchiectasis, 10:30a Sleep Services Of [facility] Anusha uncomplicated [facility] Office Visit 01/05/2020 [facility] Internal Nimo I49.3 Ventricular 11:20a Medicine - Glenis Varn, N.P. premature depolarization Office Visit 09/25/2019 [facility] Internal Nimo Z00.00 Encntr for general 9:00a Medicine - Glenis Varn, N.P. adult medical exam w/o abnormal findings Z12.31 Encntr screen mammogram for malignant neoplasm of breast E78.00 Pure hypercholesterolemia, unspecified R73.01 Impaired fasting glucose F41.1 Generalized anxiety disorder R05 Cough Z23 Encounter for immunization Office Visit 08/25/2019 [facility] J47.9 Bronchiectasis, 8:30a [facility] Anusha uncomplicated Punchboard Stuffer Assessments Date Code Description Provider 01/19/2020 J47.9 [...] Encounter for general adult medical Nimo Bob N.PDavid examination without abnormal findings 09/25/2019 Z12.31 Encounter for screening mammogram for Nimo Bob N.PDavid malignant neoplasm of breast 09/25/2019 E78.00 Pure hypercholesterolemia, unspecified Nimo Bob, N.P. 09/25/2019 R73.01 Impaired fasting glucose Nimo Bob, N.P. 09/25/2019 F41.1 Generalized anxiety disorder Nimo Bbo, N.P. 09/25/2019 R05 Cough Nimo Bob, N.P. 09/25/2019 Z23 Encounter for immunization Nimo Bob, N.P. 08/25/2019 J47.9 Bronchiectasis, uncomplicated Brenda Tavares MD 08/06/2019 R06.83 Snoring Brenda Tavares MD Plan of Treatment Future Appointment(s):03/18/2020 11:00 am - Chantell Navarro N.PDavid at [facility]02/13/2020 8:30 am - Nurse Visit cc at [facility]02/12/2020 10 :00 am - Nurse Visit cc at [facility]02/16/2020 10:00 am - [place] [facility] Schedule at [facility]03/10/2020 10:00 am - [place] [facility] Schedule at [facility]03/10/2020 10:30 am - Florentino Allison M.D. at [facility]01/13/2021 10:30 am - Lyric Mayers MOBILE DEVELOPMENT MANAGER at [facility]10/13/2020 9:20 am - Nimo Bob N.P. at [facility] - Florentino Allison M.D.J47.9 Bronchiectasis, mrztvsastlxbeM31.3 Ventricular premature depolarizationNew Orders:Holter Monitor , Scheduled: [...] for seeing this very pleasant patient. [address] [facility] [address] [place] [address] [phone]
--- OUTSIDE RECORDS SUMMARY | 2020-02-18 11:00 | XMS REPORT | Continuity of Care Document ---
:1950 External Reference #:[id number] Author Name Shaunna Brooks MD (transmitted by agent of provider Fabiola Downey) Address [address] [facility], [address] [place] [id number] Problems Active Problems Provider Date Impaired fasting [...] Medications SIG Qnty Indications Ordering Date Provider Magalyatusbenita ac 5 - 10 milliliters 118ml J98.4 Nimo Bob, 09/25/2019 every 6 hours as N.P. 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 Tablets two times daily - maximum daily dose of 2 per day Flutter use as instructed 1units J47.9 Brenda Tavares, 05/15/2019 Device twice a day Knee Brace left knee right 1units S83.511D Russ F 02/14/2018 [facility] knee acl MD Loraine deficiency [...] + D 1 po bid 60tabs Unknown [id number] Tablets History Medications Tamiflu 1 by mouth [...] Code Status Date Vaccine Reaction Lot # 41806 Given 09/25/2019 Tetanus And Diptheria (Td) No immediate reaction [id number] For Adult Use Preservative Free 90486 Given 07/17/2018 Pneumonia Vaccine No immediate [id number] reaction.. 42135 Given 07/17/2018 Influenza Virus Vaccine, No immediate [id number] Quadrivalent, Split, reaction... Preservative Free Q2039 Given 08/01/2016 Flu Vaccine NOS 63391 Given 08/11/2015 Flu Vaccine Split Virus Preservative Free For Indiv 3Yr Older 20766 Given 06/02/2015 Pneumococcal Conjugate [id number] Vaccine 13 Valent For Intramuscular Use 30143 Given 08/12/2014 Flu Vaccine Split Virus Preservative Free For Indiv 3Yr Older 98336 Given 08/12/2014 Flu Vaccine Split Virus [id number] Preservative Free For Indiv 3Yr Older 15363 Given 08/05/2013 Flu Vaccine Split Virus [id number] Preservative Free For Indiv 3Yr Older 28130 Given 12/05/2012 Zoster (Zostavax) [id number] 21780 Given 04/09/2012 Pneumonia Vaccine [id number] 86201 Given 12/16/2008 Tdap - Tetanus/Diptheria/Acellular Pertussis 14350 Given Unknown Pneumonia Vaccine Vital Signs Date [...] Range Note Basic Metabolic 01/05/2020 [facility] Sodium 140 mmol/L Normal 135-145 Panel [address] [place] [address] [phone] Potassium 4.3 mmol/L Normal 3.5-5.0 Chloride 105 mmol/L Normal 101-111 Co2 Carbon Dioxide 26 mmol/L Normal 22-32 Anion Gap 9 mmol/L Normal 2-11 Glucose 98 mg/dL Normal 70-100 Blood Urea Nitrogen 17 mg/dL Normal 6-24 Creatinine 0.81 mg/dL Normal 0.51-0.95 BUN/Creatinine Ratio 21.0 High 8-20 Calcium 10.1 mg/dL Normal 8.6-10.3 Egfr Non- 70.1 >60 Egfr 84.8 >60 1 Laboratory 01/05/2020 [facility] TSH (Thyroid 3.18 Normal 0.34 -5.60 test finding [address] Stim Horm) mcIU/mL [place], [place] [id number] [phone] Magnesium 2.2 mg/dL Normal 1.9-2.7 CBC Auto 01/05/2020 [facility] White Blood 5.9 10^3/uL Normal 3.5-10.[address] [place] [address] [phone] Red Blood Count 4.41 10^6/uL Normal 3.70-4.87 [...] % 0.1 Laboratory test 09/23/2019 [facility] Hemoglobin A1c 6.2 % High 4.0-5.[address] (Glyco HGB) [place] [address] [phone] Comp Metabolic 09/23/2019 [facility] Sodium 140 Normal 135- [address] mmol/[place] [address] [phone] Potassium 4.9 mmol/L Normal 3.5-5.0 Chloride 104 [...] >60 3 Lipid Profile 09/23/2019 [facility] Triglycerides 161 mg/dL 4 (Trig/Chol/HDL) [address] [place] [address] [phone] Cholesterol 205 mg/dL 5 HDL Cholesterol 52.5 mg/dL 6 LDL Cholesterol 120 mg/dL 7 Laboratory test 08/25/2019 [facility] Cyclic Citrullinated < 15.6 U [address] [place] [address] [phone] C Reactive Protein 1.07 mg/L Normal <8.01 Laboratory test 07/17/2019 [facility] C Reactive 1.81 mg/L Normal <8.[address] [place] [address] [phone] Erythrocyte Sed Rate 17 mm/Hr Normal 0-29 CBC Auto 07/17/2019 [facility] White Blood 5.4 10^3/uL Normal 3.5-10.[address] [place] [address] [phone] Red Blood Count 4.54 10^6/uL Normal 3.70-4.87 [...] % 0.1 Comp Metabolic 07/17/2019 [facility] Sodium 137 mmol/L Normal 135-145 Panel [address] [place] [address] [phone] Potassium 4.2 mmol/L Normal 3.5-5.0 Chloride 102 [...] Payton Igg AB Reflex 07/17/2019 [facility] SS-A/Ro Antibody <0.2 U [address] [place] [address] [phone] SS-B/La Antibody <0.2 U 11 Sm (Salter) IgG Antibody <0.2 U 12 ESL INSTRUCTIONAL ASSISTANT Antibody, IgG <0.2 U 13 Scl-70 (Scleroderma) Antibody 0.2 U 14 Annalise-1 Antibody <0.2 U 15 Laboratory test 07/17/2019 [facility] Cyclic Citrullinated < 15.6 U [address] [place] [place] [address] [phone] Anti Double Stranded Dna AB <12.3 IU/mL 17 Scleroderma AB (SCL70) 07/17/2019 [facility] Scleroderma Ab 0.2 U [address] [place] [address] [phone] Urinalysis Profile 07/17/2019 [facility] Urine Color Straw [address] [place] [address] [phone] Urine Appearance Clear Urine Specific Cocoa 1.005 Low 1.010-1.030 Urine pH 7.0 Normal [...] in selective patients <6.0%. Please refer to [place] Diabetes Association diabetic care guidelines for further [...] REFERENCE VALUE <20.0 (Negative) Test Performed by: [place] [address] Wireless Sales Manager: Bernardo Sorto M.D. Ph.D.; CLIA# [id number] Because ethnic data is not always [...] REFERENCE VALUE <1.0 (Negative) Test Performed by: [facility] [employer] [address] [place] [address] Wireless Sales Manager: Bernardo Sorto M.D. Ph.D.; QUENTINIA# [id number] 16 REFERENCE VALUE <20.0 (Negative) Test Performed by: [facility] [place] [address] Wireless Sales Manager: Bernardo Sorto M.D. Ph.D.; QUENTINIA# [id number] 17 REFERENCE VALUE <30.0 (Negative) Test Performed by: [place] [address] Wireless Sales Manager: Bernardo Sorto M.D. Ph.D.; CLIA# [id number] 18 REFERENCE VALUE <1.0 (Negative) Test Performed by: [place] [address] Wireless Sales Manager: Bernardo Sorto M.D. Ph.D.; CLIA# [id number] Procedures Date Code Description Status 01/05/2020 86303 EKG Tracing & Interpretation Completed 12/05/2019 [id number] Diabetic Retinal Eye Exam Completed 08/06/2019 27386 Polysomnography Sleep Staging 4+ Parameters Completed 08/30/2018 [id number] Mammogram Completed 02/15/2018 [id number] Diabetic Retinal Eye Exam Completed 07/16/2017 [id number] Mammogram Completed 07/13/2016 [id number] Mammogram Completed 06/22/2015 [id number] Mammogram Completed 05/25/2014 [id number] Mammogram Completed 05/25/2014 640473658 Bone Mineral Density Test Completed 06/11/2013 46800418 Colonoscopy Completed 11/15/2011 38105712 Mammogram Completed 11/15/2011 [id number] Bone Mineral Density Test Completed 02/14/2010 96399557 Mammogram Completed 12/30/2008 [id number] Mammogram Completed 12/30/2008 790870861 Bone Mineral Density Test Completed 06/22/2005 108977341 Diabetic Foot Exam Completed 04/02/2003 45483047 Colonoscopy Completed Medical Devices Description No Information Available Encounters Type Date Location Provider Dx Diagnosis Office Visit 01/08/2020 Pulmonology And Brenda Tavares, J47.9 Bronchiectasis, 10:30a Sleep Services Of MD almanzar Lyft Driver Office Visit 09/25/2019 [facility] Internal Nimo Bob, Z00.00 Encntr for general 9:00a Medicine - Ccmob N.P. adult medical exam w/o abnormal findings Z12.31 Encntr screen mammogram for malignant neoplasm of breast E78.00 Pure hypercholesterolemia, unspecified R73.01 Impaired fasting glucose F41.1 Generalized anxiety disorder R05 Cough Z23 Encounter for immunization Office Visit 08/25/2019 [facility] And Brenda J47.9 Bronchiectasis, 8:30a Sleep Services Of MD Anusha uncomplicated [facility] Office Visit 07/17/2019 Rheumatology Clayofia J47.9 Bronchiectasis, 11:00a Services Of KELIN Florian uncomplicated [facility] R91.8 Other nonspecific abnormal finding of lung field Assessments Date Code Description Provider 01/08/2020 J47.9 Bronchiectasis, uncomplicated Brenda Tavares MD 01/05/2020 I49.3 Ventricular premature depolarization Shaunna Brooks MD 01/05/2020 I49.9 Cardiac arrhythmia, unspecified Nimo [...] KELIN Cruz field Plan of Treatment Future Appointment(s):01/19/2020 9:40 am - Florentino Allison M.D. at [facility]01/13/2021 10:30 am - Lryic Mayers NP at [facility]10/13/2020 9:20 am - Nimo Bob N.PDavid at [facility] Internal Medicine - [facility]01/08/2020 - Brenda Tavares MDJ47.9 Bronchiectasis, uncomplicatedFollow up:1 year Functional Status Description No Information Available Mental Status Description No Information Available Referrals Refer to Reason for Referral Status Appt Date Florentino Allison MD Patient with frequent PVCs referred for Sent 01/19/2020 evaluation and treatment. Thank you for seeing this very pleasant patient. [address] [facility] 4TH [place] [address] [phone]
[2020-02-18 11:03] LABS: INR 0.88 (0.82-1.09)
[2020-02-18 11:05] LABS: Albumin/Globulin Ratio 1.6 (1-3); BUN/Creatinine Ratio 21.5 (8-20); Calcium 10.5 mg/dL (8.6-10.3); EGFR African American 72.1 (>60); EGFR Non-African American 59.6 (>60); Globulin 3.1 g/dL (2-4); Potassium 4.1 mmol/L (3.5-5.0); Total Bilirubin 0.4 mg/dL (0.2-1.0); Total Protein 8.1 g/dL (6.4-8.9)
[2020-02-18] MEDS ORDERED: Albuterol/Ipratropium NEB.SOL* (2.5/0.5 MG) 3 ML NEB.SOLN INH PRN (11:17)
[2020-02-18] MEDS ORDERED: Heparin(*) 1000 UNIT/ML 10 ML VIAL CATH LAB IV ONE (11:24)
[2020-02-18] MEDS ORDERED: VERAPAMIL 2.5 MG/ML 2 ML VIAL ** 5 mg/2 ml ONE (11:24)
[2020-02-18] MEDS ORDERED: Midazolam* 1 MG/ML 5 ML VIAL (5 MG) ONE (11:24)
[2020-02-18] MEDS ORDERED: fentaNYL* 50 MCG/ML 2 ML VIAL (100 MCG VIAL) ONE (11:24)
[2020-02-18] MEDS ORDERED: Lidocaine 1% INJ* 10 MG/ML 30 ML SDV ONE (11:25)
[2020-02-18] MEDS ORDERED: Heparin 2 UNITS/ML IVPREMIX* 2,000 ML IV ONE (11:25)
[2020-02-18] MEDS ORDERED: nitroGLYCERIN DRIP* 25,000 MCG/250 ML BTL ONE (11:25)
[2020-02-18] MEDS ORDERED: Iodixanol 320 (CONTRAST) 100 ML SDV ONE (11:25)
--- NOTE | 2020-02-18 11:26 | HP ---
History of Present Illness - History of Present Illness Reason for Visit: Dyspnea and possible VT during stress test History of Present Illness: Sangita Oliveira is a 70 y/o female with history of glucose intolerance, bronchiectasis, hyperlipidemia not on statin, presented from cardiology clinic to ED for dyspnea and possible VT during exercise stress test. History was partially obtained from Dr. Allison's note today in cardiology clinic. She was scheduled for stress test for history of palpitation and PVCs. She had resting hypertension and resting tachycardia before stress test, her baseline EKG revealed sinus rhythm with inferolateral ST depressions. She was able to complete 6 minutes of a Je and a minute of nonstandard stage 3 to 7.7 MET, then she developed dyspnea thus test was terminated. She did have downsloping ST depression of 1mm during stress test. In recovery, she developed wide complex tachycardia, possible SVT aberrancy vs VT, it terminated with a cough. She also developed severe LV dysfunction in recovery, with EF 25-30%, with marked anterior, septal, apical and anterolateral hypokinesis, mianly in inferior posterior segments. She did have recent echocardiogram on February 15, which revealed trace to mild MR with mild prolapse, mild TR and pulmonary hypertension, EF 65-70%, relative hyperdynamic. Patient was given aspirin loading dose on routine, and send to ED for urgent cath. Patient had no complains when I saw her, she denied chest pain, SOB, palpitation. She was comfrotable, her symptoms totally resolved. She had EKG on arrival which is NSR, she had first trop 0, CXR negative. She will be sent to cardiac cath lab manager very soon. - Past Medical History Past Medical History: 1. Bronchiectasis f/u Dr. Tavares 2. Anxiety with panic attack 3. Glucose intolerance 4. Hyperlipidemia 5. Lung nodule in CT scan, stable in follow up scan - Past Surgical History Past Surgical History: 1. Tonsillectomy with adenoidectomy 2. Face lift surgery-cosmetic 3. Uterus prolapse sling - Past Family History Past Family History: Diabetes in family. Father has coronary heart disease with stents put in before. 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 Non smoker, no alcohol use, no drug use. Medications: Home Medications Medication Instructions Recorded Confirmed Type Klonopin TAB(*) 1 mg PO BID PRN 06/10/13 11/09/16 History Acetaminophen [Acetaminophen Extra 2 tab PO TID PRN 11/06/15 11/09/16 History Stren] Ibuprofen TAB* [Motrin TAB* 800 MG] 1 tab PO TID PRN 11/06/15 11/09/16 History Calcium Carbonate-Vitamin D 1 tab PO BID 11/02/16 11/09/16 History [Calcium 600 + D] Propranolol 10 mg TAB [Inderal 10 mg PO BID PRN 11/02/16 11/09/16 History TAB*] Allergies/Adverse Reactions: Allergies Allergy/AdvReac Type Severity Reaction Status Date / Time epinephrine AdvReac See Comment Verified 02/18/20 17:55 Adhesives AdvReac Rash Uncoded 02/18/20 17:55 Review of Systems - Review of Systems Constitutional: Negative: Fever, Chills, Sweats, Weakness, Malaise, Other Eyes: Negative: Pain, Vision Change, Conjunctivae Inflammation, Eyelid Inflammation, Redness, Other ENT: Negative: Ear Pain, Ear Discharge, Nose Pain, Nose Discharge, Nose Congestion, Mouth Pain, Mouth Swelling, Throat Pain, Throat Swelling, Other Respiratory: Negative: Cough, Dry, Shortness of Breath, Hemoptysis, SOB with Excertion, Pleuritic Pain, Sputum, Wheezing Cardiovascular: Positive: Palpitations, Other - Dyspnea. Negative: Chest Pain, Orthopnea, Paroxysmal Noc. Dyspnea, Edema, Light Headedness Gastrointestinal: Negative: Nausea, Vomiting, Abdominal Pain, Diarrhea, Constipation, Melena, Hematochezia, Other Genitourinary: Negative: Dysuria, Frequency, Incontinence, Hematuria, Retention , Other Musculoskeletal: Negative: Neck Pain, Shoulder Pain, Arm Pain, Back Pain, Hand Pain, Leg Pain, Foot Pain, Other Skin: Negative: Rash, Lesions, Tyshawn, Bruising, Other Neurological/Mental Status: Negative: Weakness, Numbness, Incoordination, Change in Speech, Confusion, Seizures, Other Exam Vital Signs: Vital Signs (72 hours) 02/18/20 10:25 Temperature 98.7 F Pulse Rate 101 Respiratory 17 Rate Blood Pressure 157/100 (mmHg) O2 Sat by Pulse 99 Oximetry Exam: GEN: comfortable sitting on the stretcher, not in distress NECK: JVP not elevated HEENT: S1S2 normal, no murmur Lung: clear on auscultation Abdomen: soft, non tender Extremity: no edema Neurological: alert, oriented x4. Psy: calm. stable mood. Result Diagrams: 02/18/20 10:36 02/18/20 10:36 Diagnostic Imaging: CXR: normal EKG Data: EKG: normal sinus rhythm, no ST changes compared with last EKG in [facility] 01/19/20 Assessment/Plan - Assessment/Plan Assessment: Sangita Oliveira is a 70 y/o female with history of glucose intolerance, bronchiectasis, hyperlipidemia not on statin, presented from cardiology clinic for dyspnea and possible VT during exercise stress test. She was found to have ST depression and decreased EF with inferior wall motion abnormality when this happened. Symptoms resolved currently, plan for urgent cath for evaluation of ischemic causes for her arrythmia and depressed EF. She will go directly to cardiac cath lab manager from ED, she will potentially go to ICU after cardiac cath lab manager depending on her condition. Plan: 1. Arrhythmia during stress test - Need to evaluate for ischemic causes - Cath urgently as scheduled, npo for now - aspirin loading dose was given on route, whether second antiplt or anticoag needed will be up to glove former's discretion - currently patient asymptomatic, first trop 0.00 with no EKG changes, we will continue to trend trop - metoprol and liptor once dose given before cath, will need to continue post cath - Appreciate glove former input 2. Hypertension - She is mildly hypertensive in ED, normally well controlled BP - stress related likely, will watch 3. Glucose intolerance - on diet control - HbA1c tomorrow morning 4. Anxiety - continue klonipin post procedure 5. Bronchiectasis - no respiratory signs or symptoms 6. DVT prophylaxis - ambulatory Attestation Documenting Resident: Osmel Supervising Physician: Wiley Attending/Supervising Physician Comment: I saw Sangita after the [facility]. R radial site is clean and intact. She feels good. LHC was negative for coronary disease. Will start metoprolol for arrhythmia suppression. Repeat TTE tomorrow morning. Attestation: This service has been performed in part by a resident under the direction of a teaching physician.IWiley, performed the service, or was physically present during the critical, or lincoln portions of the service, furnished by the resident. I participated in the management of the patient.
[2020-02-18 12:06] LABS: Magnesium 2.2 mg/dL (1.9-2.7)
[2020-02-18] MEDS ORDERED: diPHENhydraMINE IV* 50 MG/ML 1 ml VIAL (BENADRYL) ONE (12:20)
--- NOTE | 2020-02-18 12:59 | CONS ---
CARDIOLOGY CONSULTATION REPORT: DATE OF CONSULT: 02/18/20 ATTENDING PHYSICIAN: Jessi Bishop MD* (dictated by Jamia Castañeda NP) PRIMARY PHYSICIAN: Dr. Jade Watts. PRIMARY DIAGNOSTIC CARDIAC SONOGRAPHER: Dr. Florentino Allison. REASON FOR CONSULT: Exercise-induced VT/SVT with aberrancy with severe reduction in LVF with associated wall motion abnormality. HISTORY OF PRESENT ILLNESS: This is a pleasant 70-year-old female patient who presented to [facility] at the discretion of her primary transverse abdominal muscle nurse , Dr. Florentino Allison, after undergoing an exercise stress echocardiogram. Per report, the patient exercised for a total of 7 minutes achieving 7.7 METs, maximum blood pressure was 184/96. She was able to achieve 126% of a maximum predicted heart rate. She had accelerated heart rate response with [address] segment depression with stress, consistent with ischemia, PVCs, couplets with stress. There was wide complex ventricular tachycardia in recovery up to 160 beats per minute, probable VT versus SVT with aberrancy, was terminated with vagal mechanism (cough). Resting EF was 55% to 60% with subtle relative septal hypokinesis. She had severe stress-induced LV dysfunction, EF 25% to 30% with anterior, anteroseptal, septal, and apical hypokinesis to akinesis. Given abnormal exercise stress echo, she was transferred to [facility] for further evaluation. The patient states that she was asymptomatic during stress echocardiogram. She denies experiencing chest pain or discomfort. Denies dizziness, syncope. She states that recently while in [place] visiting her daughter on 12/27/19, while shopping in the market, she developed intermittent palpitations consistent with a prior history of PVCs. She admits to being more fatigued during that trip and consuming more caffeine, which she felt likely provoked her PVCs. Given ongoing intermittent PVCs, she was evaluated by Dr. Allison on 01/19/20 and was asked to have updated exercise stress echo, which again was conducted today. She states that in the past 6 months, she has been noticing dyspnea on exertion, but she was contributing this to being more sedentary than usual. Again, she denies experiencing chest pain or discomfort. PAST MEDICAL HISTORY: 1. Anxiety. 2. Bronchiectasis, followed by Dr. Tavares. 3. Abnormal rheumatoid factor per the patient. 4. Borderline hyperlipidemia. 5. Borderline hemoglobin A1c. PAST SURGICAL HISTORY: Includes: 1. Bronchoscopy, which per the patient revealed MRSA. 2. Tonsillectomy with adenoidectomy. 3. Facelift. 4. Pelvic reconstruction surgery. MEDICATIONS: Home medications listed include: 1. Clonazepam 1 mg b.i.d. p.r.n. 2. Valtrex p.r.n. 3. Flovent HFA 44 mcg/ACT 1 puff b.i.d. 4. Magnesium 200 mg p.o. daily. 5. ProAir HFA 108 mcg/ACT 2 puffs 4 times a day as needed p.r.n. for dyspnea. 6. Propranolol 10 mg p.o. daily p.r.n. 7. Calcium 600 with vitamin D as needed. ALLERGIES: Listed include: 1. EPINEPHRINE, which apparently causes heart racing, anxiety. 2. ADHESIVE TAPE, which causes contact dermatitis. FAMILY HISTORY: Positive for coronary artery disease and diabetes. Father had coronary intervention in his 7th decade. Negative for premature atherosclerotic disease. 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 She is , lives at home with her . She is a former tobacco user; she quit in 2001. Denies alcohol use or illegal drug use. She consumes 2 cups of regular coffee a day. Again in the past 8 to 12 months, she has been more sedentary than usual due to caring for her ailing father. REVIEW OF SYSTEMS: All systems have been reviewed and are otherwise negative except what was above mentioned in the HPI. PHYSICAL EXAM: Temperature is 98.7, pulse 101, respirations 17, oxygenation 99 % on room air, blood pressure 157/100. General: The patient is sitting upright in bed in the emergency room, appears in no apparent distress. She is A and O x3, cooperative with exam, appears well nourished. HEENT: Head is atraumatic, normocephalic. Oral mucosa is moist. Tongue is midline. Neck is supple. Trachea midline. No JVD. No carotid bruits. Cardiac: Normal S1, S2. Regular rate and rhythm. No murmur, rub, or gallop noted. Lungs: Auscultated posteriorly. No evidence of adventitious breath sounds. Respirations are nonlabored with a rate of 17. /GI: Abdomen is soft, nontender, nondistended. Normoactive bowel sounds x4. No hepatomegaly to palpation. Peripheral vascular: 3+ brachial and bilateral femoral pulses palpated. No thrill. 2+ dorsalis pedis pulses palpated bilaterally symmetrically. Skin: Intact. No evidence of jaundice, rashes, or ecchymosis appreciated. Peripheral line noted in the left antecubital region. DIAGNOSTIC STUDIES/LAB DATA: Blood work obtained on 02/18/20 reviewed, white count 5.4, hemoglobin 13.8, hematocrit 41, platelets 234. Chemistry is currently pending at this time. ECG on 02/18/20; reviewed, sinus rhythm, rate [address] segment or T-wave changes appreciated. Chest x-ray pending. ASSESSMENT AND PLAN: 1. Intermittent complaints of palpitations with recent abnormal stress echo, with stress-induced left ventricular dysfunction and hypokinesis to akinesis involving anterior, anteroseptal, septal, and apical territory. The patient had wide complex tachycardia in recovery up to 160 beats per minute, probable ventricular tachycardia versus supraventricular tachycardia with aberrancy, which was aborted with vagal mechanism. Exercise echo, high risk for ischemia. Risk factors include hypertension, borderline diabetes, and hyperlipidemia. Reviewed indications for left heart catheterization with the patient including risks and benefits that include but not limited to bleeding, infection, vessel damage, risk of contrast- induced nephropathy, possibility of requirement of dual antiplatelet therapy, referral for bypass surgery, stroke, heart attack, . The patient is agreeable to proceeding with procedure. We will place precath order set. The patient had cereal this morning. We will make the patient n.p.o. She received aspirin at her outpatient office. We will administer Lipitor 80 mg p.o. x1 in addition to Lopressor 25 mg p.o. x1 and start IV hydration precath. Consent to be obtained by software tester, Dr. Jaimes. 2. History of hypertension. Historically, would take propranolol p.r.n. Blood pressure is currently 157/100. We will administer Lopressor 25 mg p.o. x1. 3. History of borderline hyperlipidemia. We will start Lipitor 80 mg p.o. q.h.s. Goal LDL is less than 100; however, if she does have an abnormal cardiac catheterization revealing coronary artery disease, goal LDL would be less than 70. 4. History of premature ventricular contractions. Historically, not related to activity; however, it does appear to be exercise induced. She will have cardiac catheterization. We will continue beta-shmuel therapy and make further recommendations postischemic evaluation. 5. Disposition. Pending course. Dr. Jessi Bishop has personally seen and examined the patient and agrees with the above assessment and plan. JAMIA CASTAÑEDA, WELT SOLE LAYER [id number]/[facility] #: [id number] PHILIPP
[2020-02-18] MEDS: NS 0.9% 1000 ML** 1,000 ML IV SCH ×2 (13:37→17:44)
--- NOTE | 2020-02-18 15:37 | CATH ---
CC: Dr. Florentino Allison; Dr. Jessi Bishop CORONARY ANGIOGRAPHY AND LEFT HEART CATHETERIZATION: DATE OF PROCEDURE: 02/18/20 PROVIDERS: Dr. Florentino Allison and Dr. Jessi Bishop INDICATION FOR PROCEDURE: Positive stress test and tachyarrhythmia. PROCEDURE: Coronary angiography and left heart catheterization without left ventriculography. CONSENT: The patient was interviewed and examined in the emergency department where the options, risks, and benefits were explained. She had an opportunity to ask questions, understood the issues and wished to proceed. Pre-cardiac catheterization labs: Hemoglobin 13.8, Hematocrit 41%, Platelet count 234,000. BMP and coagulation profile within normal limits. EQUIPMENT UTILIZED: 1. A radial artery 6-Liberian Glidesheath. 2. 5-Liberian Clarence 4 catheter. 3. TR, regular length, vascular band. 4. A 0.035 x 260 cm Calhoun guidewire. MEDICATIONS GIVEN DURING THE PROCEDURE: Local anesthesia was 1% Xylocaine. Radial artery "cocktail" of 300 mcg of nitroglycerin, 2.5 mg of verapamil and 5000 units of heparin was given through the side arm after access to the radial artery was obtained. Sedation: 1 mg of Versed, 25 mcg of fentanyl, and 25 mg of diphenhydramine. She had been pretreated with aspirin 324 mg in the doctor' s office before being sent to the emergency room. DESCRIPTION OF THE PROCEDURE: The patient was brought to the Banquet [facility] and placed on the laboratory animal caretaker table. A formal timeout was performed. She was prepped and draped in the usual sterile fashion. The right radial artery was successfully cannulated and the sheath inserted without difficulty. Diagnostic angiography was performed using the Clarence catheter, which was inserted and withdrawn over a Calhoun wire. Diagnostic angiography was performed with the Clarence catheter cannulating both coronary ostia and images were obtained in multiple views for all vessels. At the end of the coronary angiography, the Clarence catheter was advanced across the aortic valve over the Calhoun wire, for measurement of left ventricular pressure. The catheter was withdrawn for pullback pressures. Total Contrast used: 50 cc. Total fluoro time: 5.1 minutes, Fluoro Dose: 264 mGy, Cine Dose: 1663 DAP. Complications: None RESULTS: Hemodynamic data: Left ventricular pressure was 158/1/15 mm Hg. Aortic pressure was 151/73 with a mean of 110. Coronary Angiography: 1. Left main: Angiographically normal. 2. Left anterior descending: Dual LAD system. The lateral branch has a large first diagonal, small-medium size second and forth diagonal and small third diagonal branch, all angiographically normal. The medial branch has several septal branches and also was angiographically normal. 3. The circumflex: nondominant with medium size first, third and forth marginal branches and a small third OM. The first OM has a smooth, focal 40-50 % lesion at it's ostium. The circumflex and it's branches otherwise appear angiographically normal. 4. Right coronary artery: Large and dominant with minimal luminal irregularity in its proximal portion. It is otherwise angiographically normal. OVERALL ASSESSMENT: 1. Right dominant coronary artery system with minimal disease as described above. 2. Left ventricular end diastolic pressure minimally elevated at 15 mmHg. SUGGESTIONS: Medical management and risk factor modification with attention to her dysrhythmia. The patient was sent to recover in stable condition. [id number]/[facility] #: [id number] PHILIPP
--- NOTE | 2020-02-18 17:03 | PN ---
Cardiology Progress Note Date of Service: 02/18/20 Cardiology Wound check. Patient without complaints. Called by nurses to assess minimal swelling proximal to TR band, about the size of a quarter, noticed when TR band was taken off. Right radial pulse was strong and patient was asymptomatic. I instructed the nurses to re-apply the TR band for 30 minutes with 4 cc of air and then to decrease inflation. Reassessment of the puncture site showed no swelling in the area of the distal radial artery, but mild bruising. The pulse was strong and the patient had no complaints. Will continue to monitor with the usual protocol of tegaderm dressing and checks as per the orders.
--- NOTE | 2020-02-18 17:12 | PN ---
Cardiology Progress Note Date of Service: 02/18/20 - CC: abnormal stress, wide complex tachycardia See dictated H+P by MARIETTA Castañeda Pt send by Dr Allison after stress test with Mer (VT vs SVT with abberency) EF dropped with testing I personally saw the patient in ED, obtained hx and did PE. Recent palpitations, PVCs noted. Decreased exercise ability recently after winter w/o exercise. Exam unremarkable, petite, clear lungs, no murmurs, good pulses, no bruits. Cath: normal C's. A/P: Wide complex tachycardia, drop in EF with this rhythm. Hx anxiety, PVC's, BP elevated in ED, hx asthma. Plan: Metoprolol 25 mg BID recommended as an in patient, can change to LA form once dose titrated. OK to stop statin for now. Echo in AM for EF. Out patient EP referral can be made. Out patient f/u stress on beta shmuel can be made.
[2020-02-18] MEDS ORDERED: clonazePAM TAB(*) 1 MG PO PRN (17:47)
[2020-02-18] MEDS ORDERED: Metoprolol Tartrate TAB* 25 MG PO SCH (21:00)
[2020-02-19 05:52] LABS: ABS Basophils 0.1 10^3/ul (0-0.2); ABS Eosinophils 0.1 10^3/ul (0-0.6); ABS Lymphocytes 2.3 10^3/ul (1.0-4.8); ABS Monocytes 0.5 10^3/ul (0-0.8); ABS Neutrophils 2.7 10^3/ul (1.5-7.7); Hematocrit 34 % (35-47); Hemoglobin 11.8 g/dL (12.0-16.0); Lymphocyte % 41.2 %; Mean Corpuscular HGB Conc 35 g/dL (31-36); Mean Corpuscular Hemoglobin 31 pg (27-31); Mean Corpuscular Volume 90 fL (80-97); Mean Platelet Volume 7.8 fL (7.4-10.4); Platelet Count 205 10^3/uL (150-450); Red Blood Count 3.78 10^6 /uL (3.70-4.87); Red Cell Distribution Width 13 % (10-15); White Blood Count 5.7 10^3/uL (3.5-10.8)
[2020-02-19 06:11] LABS: BUN/Creatinine Ratio 21.1 (8-20); Calcium 8.6 mg/dL (8.6-10.3); EGFR African American 70.4 (>60); EGFR Non-African American 58.2 (>60); HDL Cholesterol 49.9 mg/dL; Potassium 4.4 mmol/L (3.5-5.0)
--- NOTE | 2020-02-19 08:49 | PN ---
<Db Castañedalin - Last Filed: 02/19/20 08:34> Subjective Date of Service: 02/19/20 - VT/SVT with abberancy in recovery on stress echo with LV reduction s/p LHC normal cors Interval History: No events last night, patient offers no complaints. Sitting in bed talking on phone and eating breakfast upon entering room. Denies dizziness, palpitations, sensation of heart racing, right radial access site discomfort. Tolerating Lopressor therapy. No ventricular ectopy noted on telemetry . Medications Active Medications: Albuterol/Ipratropium (Duoneb (Albuterol 2.5 Mg/Ipratropium 0.5 Mg)) 3 ml INH [id number] AWAKE PRN PRN Reason: SOB/WHEEZING Clonazepam (Klonopin Tab(*)) 1 mg PO BID PRN PRN Reason: ANXIETY Sodium Chloride (Ns 0.9% 1000 Ml) 1,000 mls @ 100 mls/hr IV .per rate [facility] Last Admin: 02/18/20 17:44 Dose: 100 mls/hr Metoprolol Tartrate (Lopressor Tab*) 37.5 mg PO BID [facility] Objective Vital Signs: Temp Pulse Resp BP Pulse Ox 98.2 F 72 16 127/65 100 02/19/20 07:52 02/19/20 07:52 02/19/20 07:52 02/19/20 07:52 02/19/20 07:52 Oxygen Devices in Use Now: None Appearance: well nourished, A+O x3, NAD Ears/Nose/Mouth/Throat: NL Teeth, Lips, Gums, Clear Oropharnyx, Mucous Membranes Moist Neck: NL Appearance and Movements; NL JVP, Trachea Midline, No Thyroid Enlargement, Masses Respiratory: Symmetrical Chest Expansion and Respiratory Effort, Clear to Auscultation Cardiovascular: NL Sounds; No Murmurs; No JVD, RRR Extremities: No Edema, - - Right radial access site non tender to palpation, no thrill, slight swelling below band from immobilizer. 3+ radial pulse, cap refill < 3 seconds. no hematoma. Skin: No Rash or Ulcers Neurological: Alert and Oriented x 3 Lines/Tubes/Other Access: Clean, Dry and Intact Peripheral IV Laboratory Results: 02/19/20 05:22 02/19/20 05:22 INR (Anticoag Therapy) 0.88 (0.82-1.09) 02/18/20 10:36 APTT 30.4 seconds (26.0-38.0) 02/19/20 05:22 Total Bilirubin 0.40 mg/dL (0.2-1.0) 02/18/20 10:36 AST 18 U/L (13-39) 02/18/20 10:36 ALT 15 U/L (7-52) 02/18/20 10:36 Alkaline Phosphatase 65 U/L (34-104) 02/18/20 10:36 B-Natriuretic Peptide 45 pg/mL (<=100) 02/18/20 10:36 Total Protein 8.1 g/dL (6.4-8.9) 02/18/20 10:36 Albumin 5.0 g/dL (3.2-5.2) 02/18/20 10:36 Globulin 3.1 g/dL (2-4) 02/18/20 10:36 Albumin/Globulin Ratio 1.6 (1-3) 02/18/20 10:36 Triglycerides 118 mg/dL 02/19/20 05:22 Cholesterol 158 mg/dL 02/19/20 05:22 LDL Cholesterol 85 mg/dL 02/19/20 05:22 HDL Cholesterol 49.9 mg/dL 02/19/20 05:22 02/18/20 10:36 Troponin I 0.00 Laboratory Results - last 24 hr 02/18/20 02/18/20 02/18/20 10:36 10:36 10:36 WBC 5.4 RBC 4.51 Hgb 13.8 Hct 41 MCV 90 MCH 31 MCHC 34 RDW 14 Plt Count 234 MPV 7.5 Neut % (Auto) 60.6 Lymph % (Auto) 28.0 Clare % (Auto) 9.5 Eos % (Auto) 1.0 Baso % (Auto) 0.9 Absolute Neuts (auto) 3.2 Absolute Lymphs (auto) 1.5 Absolute Monos (auto) 0.5 Absolute Eos (auto) 0.1 Absolute Basos (auto) 0.0 Absolute Nucleated RBC 0.0 Nucleated RBC % 0.0 INR (Anticoag Therapy) 0.88 APTT Sodium 135 Potassium 4.1 Chloride 101 Carbon Dioxide 24 Anion Gap 10 BUN 20 Creatinine 0.93 Est GFR ( Amer) 72.1 Est GFR (Non-Af Amer) 59.6 BUN/Creatinine Ratio 21.5 H Glucose 119 H Calcium 10.5 H Magnesium 2.2 Total Bilirubin 0.40 AST 18 ALT 15 Alkaline Phosphatase 65 Troponin I 0.00 B-Natriuretic Peptide Total Protein 8.1 Albumin 5.0 Globulin 3.1 Albumin/Globulin Ratio 1.6 Triglycerides Cholesterol LDL Cholesterol HDL Cholesterol 02/18/20 02/19/20 02/19/20 10:36 05:22 05:22 WBC 5.7 RBC 3.78 Hgb 11.8 L Hct 34 L MCV 90 MCH 31 MCHC 35 RDW 13 Plt Count 205 MPV 7.8 Neut % (Auto) 46.6 Lymph % (Auto) 41.2 Clare % (Auto) 9.2 Eos % (Auto) 2.0 Baso % (Auto) 1.0 Absolute Neuts (auto) 2.7 Absolute Lymphs (auto) 2.3 Absolute Monos (auto) 0.5 Absolute Eos (auto) 0.1 Absolute Basos (auto) 0.1 Absolute Nucleated RBC 0.0 Nucleated RBC % 0.0 INR (Anticoag Therapy) APTT 30.4 Sodium Potassium Chloride Carbon Dioxide Anion Gap BUN Creatinine Est GFR ( Amer) Est GFR (Non-Af Amer) BUN/Creatinine Ratio Glucose Calcium Magnesium Total Bilirubin AST ALT Alkaline Phosphatase Troponin I B-Natriuretic Peptide 45 Total Protein Albumin Globulin Albumin/Globulin Ratio Triglycerides Cholesterol LDL Cholesterol HDL Cholesterol 02/19/20 05:22 WBC RBC Hgb Hct MCV MCH MCHC RDW Plt Count MPV Neut % (Auto) Lymph % (Auto) Clare % (Auto) Eos % (Auto) Baso % (Auto) Absolute Neuts (auto) Absolute Lymphs (auto) Absolute Monos (auto) Absolute Eos (auto) Absolute Basos (auto) Absolute Nucleated RBC Nucleated RBC % INR (Anticoag Therapy) APTT Sodium 139 Potassium 4.4 Chloride 109 Carbon Dioxide 25 Anion Gap 5 BUN 20 Creatinine 0.95 Est GFR ( Amer) 70.4 Est GFR (Non-Af Amer) 58.2 BUN/Creatinine Ratio 21.1 H Glucose 98 Calcium 8.6 Magnesium Total Bilirubin AST ALT Alkaline Phosphatase Troponin I B-Natriuretic Peptide Total Protein Albumin Globulin Albumin/Globulin Ratio Triglycerides 118 Cholesterol 158 LDL Cholesterol 85 HDL Cholesterol 49.9 Diagnostic Imaging: Cardiac Catheterization Report AMBER [id number] 02/18/20 RESULTS: Hemodynamic data: Left ventricular pressure was 158/1 with an end- diastolic pressure of 15. Aortic pressure was 151/73 with a mean of 110. Coronary Angiography: 1. Left main within normal limits. 2. The left anterior descending was within normal limits. There were 2 small diagonal branches also within normal limits. There was a large first septal branch almost approximating a dual LAD system. The circumflex was nondominant with a small first marginal. There was a high proximal large first obtuse marginal branch, a second small obtuse marginal branch and medium sized third and fourth obtuse marginal branches all of which were without significant angiographic disease. 3. The right coronary artery was very large and dominant with minimal luminal irregularity in its proximal portion and otherwise free of angiographic disease. OVERALL ASSESSMENT: 1. Right dominant coronary artery system with minimal disease as described above. 2. Left ventricular end diastolic pressure minimally elevated at 15 mmHg. SUGGESTIONS: Medical management and risk factor modification with attention to her dysrhythmia. [id number]/[facility] #: [id number] Ailyn Jaimes MD Dictated Date/Time: 02/18/20 1414 Transcribed Date/Time 02/18/20 1507 Copy to: CC: Ailyn Jaimes MD This report is only to be considered final once signed by the Provider(s) as displayed in the "<Electronically Signed by >" field (s). Absence of a signature indicates the report is in a draft status and still needs to be finalized. In the event this document was created by someone other than the signing Provider, the individual initiating the document will be listed in the "Entered by:" or "Dictated by:" richard. 2 of 2 EKG Data: ECG 02/18/20; Sinus rhythm rate 89 02/19/20 telemetry reviewed. Sinus rhythm rate 70-80's no ventricular ectopy. Assessment/Plan #1 h/o symptomatic PVCs recently risk stratified with stress echo 02/18/20 which revealed stress induced LV dysfunction with anterior, anteroseptal , septal and apical hypokinesis. She had wide complex VT in recovery ( VT versus SVT with aberrancy up to 160 BPM that resolved with vagal mechanism, patient was asymptomatic). LHC 02/18/20 revealed normal coronary arteries. She is now on Lopressor 25 BID and tolerating dose, no ectopy noted on telemetry. I have increased Lopressor to 37.5 BID and I have asked that she ambulate the halls later this morning on higher dose to see if ectopy can be induced and to ensure she is tolerating higher dose. TSH was normal 01/22. Recommend continuing ETOH, caffeine avoidance and follow up with Dr. Allison on 02/26/20 as planned. She will need referral to EP however, this can be done outpatient. Kepp K+> 4, Mag> 2. #2 False + Stress echo; s/p C 02/18/20; right radial access site non tender to palpation. 3+ right radial pulse. No thrill, no hematoma. She is aware that she may shower but is to not soak radial access site. She is aware that she will not be able to lift more than 5lbs for 7 days( avoidance of ADL care for her father). Statin stopped. LDL at goal( < 100) #3 Stress induced LV dysfunction; likely transient from arrhythmia. Repeat echo this morning is pending. #4 Disposition pending course. Will monitor patient this morning to verify she tolerates higher dose of Lopressor. Await repeat echo. If LV function normal and she is doing well on Lopressor 37.5 Will sign off. Will discuss case with attending stunner Dr. Soto. Attending: Stefan Sheth <Stefan Sheth - Last Filed: 02/19/20 10:03> Medications Active Medications: Albuterol/Ipratropium (Duoneb (Albuterol 2.5 Mg/Ipratropium 0.5 Mg)) 3 ml INH [id number] AWAKE PRN PRN Reason: SOB/WHEEZING Clonazepam (Klonopin Tab(*)) 1 mg PO BID PRN PRN Reason: ANXIETY Sodium Chloride (Ns 0.9% 1000 Ml) 1,000 mls @ 100 mls/hr IV .per rate [facility] Last Admin: 02/18/20 17:44 Dose: 100 mls/hr Metoprolol Tartrate (Lopressor Tab*) 37.5 mg PO BID [facility] Last Admin: 02/19/20 08:43 Dose: 37.5 mg Objective Vital Signs: Temp Pulse Resp BP Pulse Ox 98.2 F 72 16 127/65 100 02/19/20 07:52 02/19/20 07:52 02/19/20 08:00 02/19/20 07:52 02/19/20 07:52 Laboratory Results: 02/19/20 05:22 02/19/20 05:22 INR (Anticoag Therapy) 0.88 (0.82-1.09) 02/18/20 10:36 APTT 30.4 seconds (26.0-38.0) 02/19/20 05:22 Total Bilirubin 0.40 mg/dL (0.2-1.0) 02/18/20 10:36 AST 18 U/L (13-39) 02/18/20 10:36 ALT 15 U/L (7-52) 02/18/20 10:36 Alkaline Phosphatase 65 U/L (34-104) 02/18/20 10:36 B-Natriuretic Peptide 45 pg/mL (<=100) 02/18/20 10:36 Total Protein 8.1 g/dL (6.4-8.9) 02/18/20 10:36 Albumin 5.0 g/dL (3.2-5.2) 02/18/20 10:36 Globulin 3.1 g/dL (2-4) 02/18/20 10:36 Albumin/Globulin Ratio 1.6 (1-3) 02/18/20 10:36 Triglycerides 118 mg/dL 02/19/20 05:22 Cholesterol 158 mg/dL 02/19/20 05:22 LDL Cholesterol 85 mg/dL 02/19/20 05:22 HDL Cholesterol 49.9 mg/dL 02/19/20 05:22 02/18/20 10:36 Troponin I 0.00 Assessment/Plan Points of Discussion: Patient seen and examined. Case discussed with Ms.Ashlin Garry NP and agree with assessment and plan as outlined including will increase beta shmuel and early follow up with Dr. Allison as scheduled.
[2020-02-19] MEDS ORDERED: Metoprolol Tartrate TAB* 25 MG PO SCH (09:00)
--- NOTE | 2020-02-19 09:14 | CONSULT ---
Cardiology Note This note is to document a visit on02/18/2020 at 4:55 PM Wound Check: I was called by the nurses to assess minimal swelling proximal to the proximal edge of the TR band. The swelling was about the size of a quarter, and was noticed by the nurses when the TR band was removed. The patient is without complaints. The right radial pulse was strong and the patient asymptomatic. I instructed the nurses to to re-apply the TR band for 30 minutes with 4 cc of air, over the area of swelling, and then decrease the inflation. Reassessment of the puncture site after that process, showed no swelling with a strong distal pulse. There was mild bruising in the area. The patient had no complaints. Will continue to monitor with the usual protocol with a tegaderm dressing, and checks as per the orders.
--- NOTE | 2020-02-19 09:41 | ECHO ---
*[facility]* [place] [address] Fax #: [phone] Transthoracic Echocardiogram Patient: Sangita Oliveira : 1950 Study Date: 02/19/2020 Age: 70 Gender: F HR: 78 bpm Height: 64 in /162.6 cm BSA: 1.66 m^2 Weight: 134.7 lb /61.2 kg BMI: 23.2 kg/m^2 *Cook Supervisor: * Renetta Jeffries [facility] *Referring Physician: * Katya Bolivar *Reading Physician: * Stefan Sheth MD Indications: Abnormal EKG. History: Ventricular tachycardia. Risk factors: Hypertension. Dyslipidemia. Conclusions Summary: - Left ventricle: The cavity size is normal. Wall thickness is mildly increased. Systolic function is normal. The estimated ejection fraction is 60-65%. Wall motion is normal; there are no regional wall motion abnormalities. Doppler parameters are consistent with abnormal left ventricular relaxation (grade 1 diastolic dysfunction). - Normal cardiac chamber sizes. - Mitral valve: Very mild posterior leaflet mitral valve prolapse. There is mild regurgitation. - Since the prior echocardiogram completed 02/16/20, prior mild pulmonary hypertension reported. Study data: Transthoracic echocardiogram. Procedure: Transthoracic echocardiography was performed. Image quality was fair. Complete 2D, spectral Doppler, and color flow Doppler. Location: Bedside. Patient status: Inpatient. Patient room number: 444. Rhythm: Normal sinus rhythm. Findings Left ventricle: The cavity size is normal. Wall thickness is mildly increased. Systolic function is normal. The estimated ejection fraction is 60-65%. Wall motion is normal; there are no regional wall motion abnormalities. Doppler parameters are consistent with abnormal left ventricular relaxation (grade 1 diastolic dysfunction). Right ventricle: The cavity size is at the upper limits of normal. (A4C imaging) Systolic function is normal. Left atrium: The atrium is normal in size. Right atrium: The atrium is normal in size. Mitral valve: The Mitral valve annulus appears calcified. The leaflets are mildly calcified. Very mild posterior leaflet mitral valve prolapse. There is mild regurgitation. Aortic valve: The leaflets are normal thickness. Appears trileaflet. There is no evidence of stenosis. There is no significant regurgitation. Tricuspid valve: The leaflets are normal thickness. There is trace regurgitation. Pulmonic valve: The leaflets are normal thickness. There is no evidence of stenosis. No regurgitation. Aorta: The aortic root appears normal. The aortic arch appears normal. Pericardium: There is no significant pericardial effusion. Pulmonary arteries: Systolic pressure is within the normal range. Pulmonary artery not well seen. Systemic veins: Inferior vena cava: The vessel is normal in size. There is (>= 50%) respiratory change in the IVC dimension. Measurements Left ventricle Value Ref Aortic valve continued Value Ref CRISTINA, LAX 4.3 cm 3.8 - 5.2 VTI, S 30.0 cm --------- ESD, LAX 2.6 cm 2.2 - 3.5 Mean grad, S 4.0 mm Hg --------- FS, LAX 39 % 27 - 45 Peak grad, S 7.0 mm Hg --------- PW, ED, LAX (H) 1.1 cm 0.6 - 0.9 LVOT/AV, VTI 0.63 --------- E', lat miriam, TDI (L) 9.0 cm/sec >=10.0 ratio E/e', lat miriam, 9 TDI Mitral valve Value Ref E', med miriam, TDI 8.9 cm/sec >=7.0 Peak E 0.78 m/sec - -------- E/e', med miriam, 9 Peak A 0.95 m/sec ---- ----- TDI Decel time 158 ms --------- E', avg, TDI 9.0 cm/sec Peak grad, D 2.4 mm Hg ---- ----- E/e', avg, TDI 9 <=14 Peak E/A ratio 0.8 - -------- LVOT Value Ref Pulmonic valve Value Ref Peak amy, S 0.84 m/sec Peak v, S 0.88 m/sec --------- VTI, S 19.0 cm Peak grad, S 3.0 mm Hg --------- Peak grad, S 3 mm Hg Mean grad, S 2 mm Hg Tricuspid valve Value Ref TR peak v 2.33 m/sec <=2.8 Ventricular septum Value Ref Peak RV-RA grad, 22 mm Hg --------- IVS, ED (H) 1.1 cm 0.6 - 0.9 S Right ventricle Value Ref Aortic root Value Ref CRISTINA, LAX 2.3 cm Root diam 2.7 cm <3.9 CRISTINA minor ax, A4C 2.1 cm 1.9 - 3.5 Root max 1.6 cm/m^2 1.4 - 2.2 mid diam/bsa, ED Pressure, S 25 mm Hg Aortic arch Value Ref Left atrium Value Ref Arch diam 3.0 cm --------- AP dim, ES 3.40 cm 2.70 - Arch diam/bsa 1.8 cm/m^2 --------- 3.80 ML dim, A4C 3.9 cm Decending aorta Value Ref SI dim, A4C 3.7 cm Emile peak amy 0.76 m/sec --------- Vol/bsa, ES, A/L 26 ml/m^2 16 - 34 Pulmonary artery Value Ref Right atrium Value Ref Pressure, S 22.0 mm Hg --------- SI dim, ES 3.7 cm 3.4 - 5.3 ML dim, ES, A4C 2.7 cm 2.6 - 4.4 Inferior vena cava Value Ref SI dim, ES, A4C 3.7 cm 3.4 - 5.3 Diam 1.2 cm --------- Estimated RAP 3 mm Hg Pulmonary veins Value Ref Aortic valve Value Ref Peak v, S 0.52 m/sec --------- Miriam diam, ED 2.0 cm Peak v, S 1.36 m/sec Legend: (L) and (H) eugene values outside specified reference range. Prepared and electronically signed by Stefan Sheth MD 02/19/2020 09:40
--- NOTE | 2020-02-19 09:53 | CONSULT ---
Cardiology Note Wound check: Jacqueline radial puncture site: Minimal diffuse swelling, no hematoma, excellent pulse, no symptoms.
--- NOTE | 2020-02-19 11:08 | DS ---
Resident Discharge Summary Discharge Summary: Date of Admission: 02/18/20 Date of Discharge: 02/19/20 Admitting MD: Brianna Jama DO Attending MD: Brianna Jama DO Primary Care Physician: Jade Watts MD Home Medications Medication Instructions Recorded Confirmed Type Acetaminophen [Acetaminophen Extra 2 tab PO TID PRN 11/06/15 02/18/20 History Stren] Ibuprofen TAB* [Motrin TAB* 800 MG] 1 tab PO TID PRN 11/06/15 02/18/20 History Calcium Carbonate-Vitamin D 1 tab PO DAILY 11/02/16 02/18/20 History [Calcium 600 + D 600-400 mg-Unit] Magnesium Oxide [Magnesium] 250 mg PO DAILY 02/18/20 02/18/20 History Turmeric 400 mg PO DAILY 02/18/20 02/18/20 History clonazePAM TAB(*) [Klonopin TAB(*)] 1 mg PO BID PRN 02/18/20 02/18/20 History Albuterol/Ipratropium NEB.ALONDRA* 3 ml INH [id number] AWAKE PRN 02/19/20 Rx [Duoneb (Albuterol 2.5 neb.soln MG/Ipratropium 0.5 MG)] Metoprolol Tartrate TAB* 37.5 mg PO BID #60 tab 02/19/20 Rx [Lopressor TAB*] Medication changes: Add metoprolol 37.5mg bid Discontinue propranolol Disposition: Home Condition: Improved Primary Diagnosis: 1. Wide complex tachycardia Secondary Diagnosis: 1. Anxiety 2. PVC 3. Asthma Diagnostic Imaging: RESULTS: Hemodynamic data: Left ventricular pressure was 158/1 with an end- diastolic pressure of 15. Aortic pressure was 151/73 with a mean of 110. Coronary Angiography: 1. Left main within normal limits. 2. The left anterior descending was within normal limits. There were 2 small diagonal branches also within normal limits. There was a large first septal branch almost approximating a dual LAD system. The circumflex was nondominant with a small first marginal. There was a high proximal large first obtuse marginal branch, a second small obtuse marginal branch and medium sized third and fourth obtuse marginal branches all of which were without significant angiographic disease. 3. The right coronary artery was very large and dominant with minimal luminal irregularity in its proximal portion and otherwise free of angiographic disease. OVERALL ASSESSMENT: 1. Right dominant coronary artery system with minimal disease as described above. 2. Left ventricular end diastolic pressure minimally elevated at 15 mmHg. SUGGESTIONS: Medical management and risk factor modification with attention to her dysrhythmia. TTE 02/18: EF 60-65%, no wall motion abnormality. Very mild posterior mitral valve prolapse with midl regurgitation. Similar to prior echo. Pertinent Laboratory Results: Laboratory Last Values WBC 5.7 10^3/uL (3.5-10.8) 02/19/20 05:22 RBC 3.78 10^6 /uL (3.70-4.87) 02/19/20 05:22 Hgb 11.8 g/dL (12.0-16.0) L 02/19/20 05:22 Hct 34 % (35-47) L 02/19/20 05:22 MCV 90 fL (80-97) 02/19/20 05:22 MCH 31 pg (27-31) 02/19/20 05:22 MCHC 35 g/dL (31-36) 02/19/20 05:22 RDW 13 % (10-15) 02/19/20 05:22 Plt Count 205 10^3/uL (150-450) 02/19/20 05:22 MPV 7.8 fL (7.4-10.4) 02/19/20 05:22 Neut % (Auto) 46.6 % 02/19/20 05:22 Lymph % (Auto) 41.2 % 02/19/20 05:22 [place] % (Auto) 9.2 % 02/19/20 05:22 Eos % (Auto) 2.0 % 02/19/20 05:22 Baso % (Auto) 1.0 % 02/19/20 05:22 Absolute Neuts (auto) 2.7 10^3/ul (1.5-7.7) 02/19/20 05:22 Absolute Lymphs (auto) 2.3 10^3/ul (1.0-4.8) 02/19/20 05:22 Absolute Monos (auto) 0.5 10^3/ul (0-0.8) 02/19/20 05:22 Absolute Eos (auto) 0.1 10^3/ul (0-0.6) 02/19/20 05:22 Absolute Basos (auto) 0.1 10^3/ul (0-0.2) 02/19/20 05:22 Absolute Nucleated RBC 0.0 10^3/ul 02/19/20 05:22 Nucleated RBC % 0.0 02/19/20 05:22 INR (Anticoag Therapy) 0.88 (0.82-1.09) 02/18/20 10:36 APTT 30.4 seconds (26.0-38.0) 02/19/20 05:22 Sodium 139 mmol/L (135-145) 02/19/20 05:22 Potassium 4.4 mmol/L (3.5-5.0) 02/19/20 05:22 Chloride 109 mmol/L (101-111) 02/19/20 05:22 Carbon Dioxide 25 mmol/L (22-32) 02/19/20 05:22 Anion Gap 5 mmol/L (2-11) 02/19/20 05:22 BUN 20 mg/dL (6-24) 02/19/20 05:22 Creatinine 0.95 mg/dL (0.51-0.95) 02/19/20 05:22 Est GFR ( Amer) 70.4 (>60) 02/19/20 05:22 Est GFR (Non-Af Amer) 58.2 (>60) 02/19/20 05:22 BUN/Creatinine Ratio 21.1 (8-20) H 02/19/20 05:22 Glucose 98 mg/dL (70-100) 02/19/20 05:22 Calcium 8.6 mg/dL (8.6-10.3) 02/19/20 05:22 Magnesium 2.2 mg/dL (1.9-2.7) 02/18/20 10:36 Total Bilirubin 0.40 mg/dL (0.2-1.0) 02/18/20 10:36 AST 18 U/L (13-39) 02/18/20 10:36 ALT 15 U/L (7-52) 02/18/20 10:36 Alkaline Phosphatase 65 U/L (34-104) 02/18/20 10:36 Troponin I 0.00 ng/mL (<0.03) 02/18/20 10:36 B-Natriuretic Peptide 45 pg/mL (<=100) 02/18/20 10:36 Total Protein 8.1 g/dL (6.4-8.9) 02/18/20 10:36 Albumin 5.0 g/dL (3.2-5.2) 02/18/20 10:36 Globulin 3.1 g/dL (2-4) 02/18/20 10:36 Albumin/Globulin Ratio 1.6 (1-3) 02/18/20 10:36 Triglycerides 118 mg/dL 02/19/20 05:22 Cholesterol 158 mg/dL 02/19/20 05:22 LDL Cholesterol 85 mg/dL 02/19/20 05:22 HDL Cholesterol 49.9 mg/dL 02/19/20 05:22 Hospital Course: Sangita Oliveira is a 70 y/o female with history of glucose intolerance, bronchiectasis, hyperlipidemia not on statin, presented from cardiology clinic for dyspnea and wide complex tachycardia during exercise stress test. She was also found to have ST depression and decreased EF with inferior wall motion abnormality when this happened. Please refer to H&P dated 02/18/[address] Brianna Jama for more information. Her symptoms resolved spontaneously, she was sent to freezer laboratory technician for coronary angiography urgently after loading with aspirin and atorvastatin. Cardiac cath doesn't reveal any coronary artery disease. Her echocardiogram showed no significant structural heart problem or LV dysfunction other than known mild MVP. Patient was seen by metal inspector inpatient, it was thought that her transient LV dysfunction was stress induced or dysarrythmia induced. She was started on metoprolol. She tolerated metoprolol well and discharged with metoprolol 37.5mg bid dose. On the day of discharge, patient is comfortable, no complains. 10-point physical examination was normal. Morning labs including CBC , BMP, lipid panel are all WNL. She was able to ambulate in the [place] with no ectopy. She will follow up with metal inspector Dr. Allison on 02/25. Follow Up Instructions: Follow up with Dr. Allison 02/26/20 9:20am. In case of an emergency or after clinic hours, please go to your nearest Emergency Department. You may also call the [facility] dinkey operator slag at ( [phone]. Attestation Documenting Resident: Osmel Supervising Physician: Wiley Attending/Supervising Physician Comment: Close follow up with Dr. Allison emphasized, and EP evaluation will be necessary. Attestation: This service has been performed in part by a resident under the direction of a teaching physician.I, Wiley, performed the service, or was physically present during the critical, or lincoln portions of the service, furnished by the resident. I participated in the management of the patient. Addendum entered and electronically signed by Katya Bolivar MD 02/19/20 16:40: Resident Discharge Summary Hospital Course: Add on Physical Examination on discharge Physical examination GEN: comfortable sitting on bed, talking to family over phone NECK: JVP not elevated HEENT: S1S2 normal, no murmur Lung: clear on auscultation Abdomen: soft, non tender Extremity: right radial artery bruises, no bleeding. No peripheral edema. Neurological: alert, oriented x4. Psy: calm. stable mood.
[2020-02-19 11:29] VITALS: BP 108/63
== END 2020-02-19 12:25 | disposition home or self-care (01) | DRG 287 ==
LOC: ED 09:52 → MEDTELE 13:24
PROVIDERS: ADMIT Internal Medicine; ATTEND Internal Medicine
PROC: B2111ZZ Fluoroscopy of Multiple Coronary Arteries using Low Osmolar Contrast (ICD-10-PCS; 2020-02-18)
PROC: 4A023N7 Measurement of Cardiac Sampling and Pressure, Left Heart, Percutaneous Approach (ICD-10-PCS; principal; 2020-02-18 11:15)
DX: R00.0 Tachycardia, unspecified (principal); G43.909 Migraine, unspecified, not intractable, without status migrainosus; F41.0 Panic disorder [episodic paroxysmal anxiety]; J47.9 Bronchiectasis, uncomplicated; E78.5 Hyperlipidemia, unspecified; R91.8 Other nonspecific abnormal finding of lung field; I27.20 Pulmonary hypertension, unspecified; I10 Essential (primary) hypertension; E74.39 Other disorders of intestinal carbohydrate absorption; I49.3 Ventricular premature depolarization; J45.909 Unspecified asthma, uncomplicated; I08.1 Rheumatic disorders of both mitral and tricuspid valves; Z87.891 Personal history of nicotine dependence; Z79.899 Other long term (current) drug therapy
CPT/HCPCS: 36415; 71045; 80048; 80053; 80061; 83735; 83880; 84484; 85025; 85610; 85730; 93005; 93306; 93458; 96360; 99156; 99157; 99284; A9270-GY; C1887; J1200; J1644; J2250; J3010